=== PATIENT | female | born 1940 | race Caucasian/White ===

== ENCOUNTER 2017-03-13 08:09 | Inpatient (IN) | payer MEDICARE, OTHER ==
[~2017-03-13] VITALS: Ht 172.7 cm; Wt 44.4 kg
--- NOTE | ~2017-03-13 | EC ---
PATIENT:NEDA LIGHT DATE OF SERVICE: 03/13/17 SEX: F MEDICAL RECORD: [id number] DATE OF : 40 LOCATION:D.M2 D.211 AGE OF PATIENT: 77 ADMISSION DATE: 03/13/17 REFERRING PHYSICIAN: INTERPRETING PHYSICIAN: ANDREA WILKINSON MD ECHOCARDIOGRAM REPORT ECHO CHARGES 4 ECHO COMPLETE CLINICAL DIAGNOSIS: HYPOXEMIA, ASSESS FOR SHUNT ECHOCARDIOGRAPHIC MEASUREMENTS (adult normal given) AC root (d.<3.7cm) 3.3 cm LV Septum d (<1.2 cm> 0.90 cm Valve Excursion 1.7 cm LV Septum (systole) 1.1 cm Left Atria (s.<4.0cm> 3.7 cm LVPW d(<1.2cm) 0.90 cm RV (d.<2.3cm) 3.9 cm LVPW (sytole) 1.1 cm LV diastole(<5.6CM) 5.6 cm MV E-F(>70mm/sec) cm LV systole 4.0 cm LVOT Diameter 2.0 cm MV exc.(>10mm) 0.80 cm Est.ejection fraction (50-75%) % Pericardial Effusion N DOPPLER: LVIT cm/sec A 105 cm/sec E 66.0 cm/sec LA cm/sec RVSP 92 mmHg LVOT 141 cm/sec AOP1/2T m/s Asc. Ao 169 cm/sec RVOT cm/sec RA cm/sec PA 140 cm/sec AV Gradient Peak 11.46mmHg AV Mean 5.93 mmHg AV Area 2.8 cm MV Gradient Peak 9.21 mmHg MV Mean 1.67 mmHg MV Area cm COMMENTS: Laboratory Sample Carrier: Juliocesar DOYLE Women Specialist: Jenifer Lorenz TAPE# PACS DATE OF SERVICE: 03/16/2017 Echocardiogram FINDINGS: 1. Left ventricular chamber size is within normal limits. Left ventricular systolic function is normal. Overall ejection fraction estimated at 55%. 2. Left atrium is within normal limits at 3.7 cm, right atrium and right ventricular chamber sizes are moderate to severely dilated. 3. Valvular structures have normal structure and motion. ECHOCARDIOGRAM REPORT [id number] NEDA LIGHT 4. Doppler interrogation reveals mild to moderate mitral regurgitation, moderate to severe tricuspid regurgitation, no other valvular insufficiency or stenosis. Pulmonary systolic is markedly elevated estimated 92 mmHg. 5. No evidence of pericardial effusion or left ventricular thrombus. 6. No evidence of atrial or ventricular septal defect. TRANSINT:[id number] Voice Confirmation ID: [id number] DOCUMENT ID: [id number] ANDREA WILKINSON MD CC: [id number] DICTATION DATE: 03/17/17 1220 GAS DISTRIBUTION PLANT OPERATOR: 03/17/17 1427 DIS IN 03/16/17 [facility] [address] [id number]
--- NOTE | 2017-03-13 10:34 | NUR ---
ARRIVE TO ROOM VIA [facility]. ALERT AND ORIENTED X4. AMBULATES TO RESTROOM WITH WALKER. O2 SAT DROPS TO 88 THEN INCREASES TO 95% WITH 2L NC. DENIES ANY NEEDS. CONTINUE ADMISSION PROCESS. BED LOCKED AND LOW. CALL LIGHT IN REACH. TWO SIDERAILS UP.
[2017-03-13 12:43] VITALS: BP 153/87
[2017-03-13] MEDS ORDERED: SENSIPAR30 MG PO (14:06)
[2017-03-13] MEDS ORDERED: FERREX 28 TABL1 EACH PO (14:08)
[2017-03-13] MEDS ORDERED: VITAMIN B-12500 MCG PO (14:09)
[2017-03-13] MEDS ORDERED: ROCALTROL0.25 MCG PO (14:10)
[2017-03-13] MEDS ORDERED: FOLIC ACID0.8 MG PO (14:11)
[2017-03-13] MEDS ORDERED: VITAMIN D31000 UNIT PO (14:11)
[2017-03-13 15:56] VITALS: BP 153/87; BMI 17.1
[2017-03-13 16:50] VITALS: BP 157/92
--- NOTE | 2017-03-13 18:15 | NUR ---
TRANSPORT TO DIALYSIS VIA WHEELCHAIR. CONTINUE PLAN OF CARE AND SAFETY PRECAUTIONS.
--- NOTE | 2017-03-13 19:26 | NUR ---
PT NOT IN ROOM.WILL PUT IN NOTE WHEN PT BACK TO ROOM. DELICIA CHARGE NURSE NOTIFIED.
--- NOTE | 2017-03-13 20:45 | NUR ---
PT BACK FROM DIALYSIS. UP TO BATHROOM WITH WALKER NO ASSISTANCE. WILL DO ASSESSMENT WHEN OUT OF BATHROOM. NO S/S OF DISTRESS. WILL CPOC
[2017-03-14] VITALS: BP 118/74
--- NOTE | 2017-03-14 01:54 | NUR ---
PT ASLEEP. RESPIRATIONS EVEN AND UNLABORED. NO S/S OF DISTRESS. BED LOW AND CALL LIGHT WITHIN REACH. WILL CPOC
[2017-03-14 04:00] VITALS: BP 128/74
[2017-03-14 06:05] LABS: BASOPHILS 0.2 % (0-2); EOSINOPHILS 2.3 % (0-7); HEMOGLOBIN 10.8 g/dL (12-16); IMMATURE GRANULOCYTES 0.2 % (0-5); MCHC 31.8 g/dL (31.0-37.0); MCV 100.6 fL (80.0-100.0); MEAN PLATELET VOLUME 9.7 fL (7.4-10.4); MONOCYTES 7.6 % (2-11); NEUTROPHILS 61.7 % (40-80); PLATELET COUNT 146 10x3/uL (130-400); RBC 3.38 10x6/uL (4.00-5.40); RDW 15.5 % (11.5-14.5); WBC 4.9 10x3/uL (4.8-10.8)
[2017-03-14 06:38] LABS: ALBUMIN 2.9 g/dL (3.4-5.0); ALKALINE PHOSPHATASE 81 U/L (46-116); ALT (SGPT) 18 U/L (10-68); BILIRUBIN - TOTAL 0.64 mg/dL (0.2-1.3); CALC OSMOLALITY 287 mosm/kg (275-300); CALCIUM 8.7 mg/dL (8.5-10.1); CARBON DIOXIDE 32.1 mmol/L (21.0-32.0); CHLORIDE - SERUM 102 mmol/L (98-107); CKMB 0.5 U/L (0.0-3.6); CREATININE - SERUM 2.9 mg/dL (0.6-1.3); GLUCOSE 93 mg/dL (74-106); MAGNESIUM - SERUM 1.9 mg/dL (1.8-2.4); PHOSPHOROUS 4.1 mg/dL (2.5-4.9); POTASSIUM - SERUM 3.6 mmol/L (3.5-5.1); PROTEIN - SERUM 6.2 g/dL (6.4-8.2); SODIUM 143 mmol/L (136-145); TROPONIN-I 0.028 ng/mL (0.000-0.060); UREA NITROGEN 22 mg/dL (7-18); eGFR NON AFRICAN AMERICAN 17 mL/min (90-120)
--- NOTE | 2017-03-14 07:08 | NUR ---
PT AWAKE LAYING IN BED. PT EXPRESSED BEING HAPPY THAT SHE WAS ABLE TO SLEEP THROUGH THE NIGHT. O2 2L NC STILL ON. RIGHT AC IV STILL S/L. BED LOW CALLLIGHT WITHIN REACH. DENIES ANY NEEDS. WILL CPOC
[2017-03-14 08:00] VITALS: BP 118/64
[2017-03-14 12:00] VITALS: BP 104/65
[2017-03-14 12:10] VITALS: Ht 172.7 cm; Wt 44.4 kg
[2017-03-14 16:00] VITALS: BP 105/60
--- NOTE | 2017-03-14 17:04 | NUR ---
RESTING IN BED. ALERT AND ORIENTED X4. DENIES ANY NEEDS. NO CHANGE. CONTINUE PLAN OF CARE AND SAFETY PRECAUTIONS.
[2017-03-14 21:52] VITALS: BP 131/78
--- NOTE | 2017-03-15 04:26 | NUR ---
PATIENT IS RESTING QUIETLY WITH EYES CLOSED. NO SIGNS OF DISTRESS NOTED. BED IN LOWEST POSITION, CALL LIGHT IN REACH. BED RAILS UP X'S 2.
[2017-03-15 06:10] VITALS: BP 125/75
--- NOTE | 2017-03-15 08:04 | NUR ---
AM ROUNDS - PT IN BED AND APPEARS TO BE SLEEPING WITH EQUAL AND NON LABORED BREATHING. O2 AT 3L VIA NC. IV TO LEFT AC, SL. PT IS A RESERVE RIGHT ARM. BED AT LOWEST POSITION. CALL PIERRE IN USE/REACH. SIDE RAILS UP X2. WILL CONTINUE TO MONITOR
--- NOTE | 2017-03-15 10:36 | NUR ---
PT LEFT FLOOR VIA BED TO DIALYSIS.
--- NOTE | 2017-03-15 14:56 | NUR ---
PT BACK FROM DIALYSIS. PT HAS NO IV. WILL CONTINUE TO MONITOR
--- NOTE | 2017-03-15 19:50 | NUR ---
PT. IN BED WITH HOB UP FOR COMFORT. PT. C/O RUE PERIPHERAL I.V. SITE PAINFUL. SLOWLY FLUSHED SITE WITH 0.9%NS AND HAD NO RESISTANCE BUT PT. STATES IS PAINFUL. NO REDNESS AT SITE BUT AREA IS SWOLLEN. WILL D/C SITE. ASSESSMENT COMPELETED. CALL LIGHT WITHIN REACH.
--- NOTE | 2017-03-15 20:15 | NUR ---
INFORMED PT. THAT SHE DOESN'T HAVE ANY MORE IV'S UNTIL TOMORROW AFTERNOON. PT. REPORTS THAT SHE MAY BE GOING HOME TOMORROW SO SHE WON'T BE GETTING ANY MORE IV'S IF SHE DOES. PT. REQUESTED THAT I NOT REMOVE HER CURRENT PERIPHERAL I.V., BUT TO WAIT UNTIL TOMORROW TO SEE IF SHE EVEN NEEDS IT ANY LONGER. INFORMED PT. THAT IF SHE SHOULD CHANGE HER MIND TO LET ME KNOW. PT. STATED SHE WOULD.
[2017-03-15 21:40] VITALS: BP 119/50
[2017-03-16 01:20] VITALS: BP 121/60
--- NOTE | 2017-03-16 03:24 | NUR ---
PT. IN BED WITH HOB UP FOR COMFORT. EYES CLOSED AND RESP. EVEN. O2 AT 3L/MIN VIA N/C WITHOUT ANY S/S DISTRESS. CALL LIGHT WITHIN REACH.
[2017-03-16 05:43] VITALS: BP 112/58
[2017-03-16 06:09] LABS: MAGNESIUM - SERUM 1.9 mg/dL (1.8-2.4); PHOSPHOROUS 5.7 mg/dL (2.5-4.9)
--- NOTE | 2017-03-16 08:17 | NUR ---
SITTING UP IN BED EATING BREAKFAST. WILL CONTINUE TO MONITOR.
[2017-03-16 08:18] LABS: IMMUNOGLOBULIN E 22 IU/mL (0-100)
[2017-03-16 08:44] VITALS: BP 133/71
--- NOTE | 2017-03-16 10:39 | NUR ---
Nutrition Follow Up: Pt is eating 79% meal avg on a renal diet. Wt loss since admit noted - likely r/t fluid. +BM 03/14/17. Meds noted including Prednisone. Labs reviewed. Rec continue current diet. Will continue to provide selective menus and honor food preferences within diet ordered. RD following.
[2017-03-16 11:17] LABS: IMMUNOGLOBULIN A 91 mg/dL (64-422); IMMUNOGLOBULIN G 860 mg/dL (700-1600)
[2017-03-16 12:04] VITALS: BP 105/54
--- NOTE | 2017-03-16 12:20 | NUR ---
Patient Name: NEDA LIGHT Admission Status: Elective Accout number: [id number] Admission Date: 03-13-2017 : 1940 Admission Diagnosis:SHORTNESS OF BREATH Attending: TAMIR Current LOS: 3 Anticipated DC Date: 03-16-2017 Planned Disposition: Home Primary Insurance: MEDICARE A & B Discharge Planning Comments: * Is the patient Alert and Oriented? Yes 0 * How many steps to enter\exit or inside your home? 4 0 * [facility] * Pharmacy [facility] [place] 0 * Preadmission Environment Home with Family 0 * ADLs Independent 0 * Equipment Bedside Commode Cane Walker 0 * Other Equipment NO MEDICAL EQUIPMENT PROVIDER PREFERNECE 0 * List name and contact numbers for known caregivers / representatives who currently or will assist patient after discharge: BRIGITTE MCLEAN, SON, [place] [phone] 0 * Community resources currently utilized None 0 * Please name any agencies selected above. NONE 0 * Additional services required to return to the preadmission environment? Yes * Can the patient safely return to the preadmission environment? Yes 0 * Has this patient been hospitalized within the prior 30 days at any hospital? No 0 CM RECEIVED OXYGEN AND NEBULIZER ORDER FOR HOME USE. CM MET WITH PT IN ROOM TO DISCUSS DISCHARGE PLANNING AND NEEDS. PT REPORTS LIVING AT HOME INDEPENDENTLY WITH HER JUVENILE GRANDSON FOR WHOM SHE IS THE CAREGIVER. PT HAS BEDSIDE COMMODE, CANE, WALKER AND WHEELCHAIR FROM HER SPOUSE. PT HAS NO MEDICAL EQUIPMENT PROVIDER PREFERENCE. PT HAS NO OUTSIDE SERVICES ASSISTING IN THE HOME. CM DISCUSSED AVAILABILITY OF HOME HEALTH, REHAB SERVICES AND MEDICAL EQUIPMENT. PT DENIES DISCHARGE NEEDS OTHER THAN THE OXYGEN WITH NO PREFERENCE OF COMPANY. PT REPORTS HER SON WILL PICK HER UP FOR DISCHARGE HOME. IMPORTANT MESSAGE FROM MEDICARE PROVIDED AND EXPLAINED. CM CALLED [facility],[phone], SPOKE TO MIESHA AND PROVIDED REFERRAL INFORMATION AND FAXED REFERRAL TO [phone]. PT NOTIFIED. [facility] TO DELIVER NEBULIZER AND PORTABLE OXYGEN TO PT'S ROOM TODAY FOR DISCHARGE HOME AND WILL ALSO ARRANGE HOME DELIVERY OF HOME OXGYEN CONCENTRATOR WHEN PT ARRIVES HOME. Insecticide Mixer: Lane Medel
--- NOTE | 2017-03-16 14:47 | NUR ---
[facility] BEEPED FOR DISCHARGE ORDERS DR AUSTIN WROTE PATIENT MAY BE DISCHARGED FROM HIS STANDPOINT. AWAITING CALL BACK.
--- NOTE | 2017-03-16 15:05 | NUR ---
RECEIVED CALL BACK FROM [facility] PUENTES [facility] AND SHE WILL TRY TO DO THE DISCHARGE ORDERS FOR US.
[2017-03-16] MEDS ORDERED: PROTONIX40 MG PO (17:13)
[2017-03-16] MEDS ORDERED: FLUTICASONE PRO16 GM NASAL (17:13)
[2017-03-16] MEDS ORDERED: PREDNISONE20 MG PO (17:13)
[2017-03-16] MEDS ORDERED: FLORAJEN3 CAPS460 MG PO (17:13)
[2017-03-16] MEDS ORDERED: SINGULAIR10 MG PO (17:14)
[2017-03-16] MEDS ORDERED: CEFUROXIME250 MG PO (17:15)
[2017-03-16] MEDS ORDERED: PROAIR HFA8.5 GM INH (17:16)
[2017-03-16] MEDS ORDERED: OMNICEF300 MG PO (17:21)
[2017-03-16] MEDS ORDERED: MUCINEX DM ER1 EAC1 PO (17:22)
[2017-03-16] MEDS ORDERED: STERAPRED DS 1210 MG PO (17:23)
--- NOTE | 2017-03-16 17:32 | NUR ---
PT IN BED. FAMILY AT BEDSIDE. PT IS WAITING TO GO HOME. WILL CONTINUE TO MONITOR
--- NOTE | 2017-03-16 18:40 | NUR ---
WRITTEN AND VERBAL D/C ORDERS GIVEN TO PT AND FAMILY MEMBER. IV TO RIGHT UPPER ARM D/C. CATH TIP INTACT. 2X2 DRESSING APPLIED AND SECURED WITH TAPE. PT TOLERATED WELL. PT LEFT FLOOR VIA WHEELCHAIR WITH AIRPORT ATTENDANT. WILL D/C
== END 2017-03-16 18:46 | disposition home or self-care (01) | DRG 189 ==
LOC: D.M2 08:09
PROVIDERS: Internal Medicine Pulmonary Disease; ADMIT Emergency Medicine
DX: J96.01 Acute respiratory failure with hypoxia (principal); N18.6 End stage renal disease; I13.2 Hypertensive heart and chronic kidney disease with heart failure and with stage 5 chronic kidney disease, or end stage renal disease; J98.11 Atelectasis; J45.909 Unspecified asthma, uncomplicated; I50.9 Heart failure, unspecified; Z99.2 Dependence on renal dialysis; D50.9 Iron deficiency anemia, unspecified; K21.9 Gastro-esophageal reflux disease without esophagitis; M19.90 Unspecified osteoarthritis, unspecified site; J98.4 Other disorders of lung; M41.9 Scoliosis, unspecified; Z86.11 Personal history of tuberculosis

== ENCOUNTER 2017-07-24 06:55 | Outpatient (CLI) | payer MEDICARE, OTHER ==
[~2017-07-24] VITALS: Ht 172.7 cm; Wt 52.3 kg
--- NOTE | ~2017-07-24 | HEMODYNAMI ---
PATIENT:NEDA LIGHT MEDICAL RECORD: [id number] : 40 LOCATION:D.CAT ADMISSION DATE: 07/24/17 Generatedon:07/24/20179:45 Patient name: NEDA LIGHT Patient #: [id number] SSN: : 1940 Date of study: 07/24/2017 Page: Of Hemodynamic Procedure Report Patient Data Patient Demographics Procedure consent was obtained First Name: NEDA Gender: Female Last Name: KULDEEP : 1940 Middle Initial: S Age: 77 year(s) Patient #: [id number] Race: Unknown Additional ID: [id number] Contact details [address]: [address] [place] [address] State: [place] City: [place] Zip code: [address] Past Medical History Allergies Allergen Reaction Date Comments Reported Other allergy 07/24/2017 PCN Admission Admission Data Admission Date: 07/24/2017 Admission Time: 6:55 Arrival Date: 07/24/2017 Arrival Time: 9:00 Admit Source: Other Insurance Payor: Medicare Height (in.): 68 BSA: 1.59 (m2) Height (cm.): 172.72 BMI: 16.88 (kg/m2) Weight (lbs.): 111 Weight (kg.): 50.35 Procedure Procedure Types Cath Procedure Diagnostic Procedure Right Heart RHC and LHC w/Coronaries Right Heart Pharmacology Study Procedure Description Procedure Date Procedure Date: 07/24/2017 Procedure Start Time: 9:12 Procedure End Time: 9:44 Procedure Staff Name Function Clark Lorenz MD Performing Physician Leonor Lawler RT Monitor Rena Charles RT Scrub Jenna Nguyễn RN Nurse Asmita Bowers RN Nurse Procedure Data Cath Procedure Fluoroscopy Diagnostic fluoroscopy Total fluoroscopy Time: 4.6 time: 4.6 min min Diagnostic fluoroscopy Total fluoroscopy dose: 278 dose: 278 mGy mGy Contrast Material Contrast Material Type Amount (ml) Isovue 300 60 Entry Location Entry Primary Successful Side Size Upsize Upsize Entry Closure Payne ccessful Closure Location (Fr) 1 (Fr) 2 (Fr) Remarks Device Remarks Femoral Right 7 Fr Manual vein Short Compression Femoral Right 5 Fr Exoseal artery Estimated blood loss: 10 ml Diagnostic catheters Device Type Used For End Catheter Placement SWAN 7Fr Thermodilution Procedure cather (131F7P) MULTIPACK JL 4.0 5Fr Procedure catheter MULTIPACK 3DRC 5Fr Procedure catheter MULTIPACK Pigtail 5 Fr Ventriculography catheter Procedure Complications No complications Procedure Medications Medication Administration Route Dosage 0.9% NaCl I.V. Oxygen NC 3 l/min Lidocaine 2% added to field 20 Heparin Flush Bag added to field 2 bags (1000units/500ml NS) Adenosine IV 3mg/ml I.V. 50 mcg/kg/min Adenosine IV 3mg/ml 50 mcg/kg/min Hemodynamics Rest BSA: 1.59 (m2) O2 Consumption: Estimated: 149.72 (ml/min) O2 Consumption indexed : Estimated:94.16 (ml/min/m) Heart Rate: 80 (bpm) Oxygen Saturations Time Location Saturations Hgb (g/dl) O2 Content Use (%) (ml/L) 9:17 PCW 88.4 9:19 AO 90.5 9:24 PA 59.5 9:32 RA 59.2 Pressure Samples Time Site Value (mmHg) Purpose Heart Use Rate(bpm) 9:16 PCW 7/8(8) Snapshot 87 9:16 PCW 9/10(8) Snapshot 87 9:18 PA 68/22(41) Snapshot 85 9:20 PA 64/25(39) Snapshot 93 9:31 PA 62/26(40) Snapshot 82 9:31 RV 64/6,15 Snapshot 94 9:31 RV 59/7,15 Snapshot 83 9:31 RA 18/15(13) Snapshot 83 9:39 LV 127/8,15 EDP 88 Thermodilution Cardiac Output Time Cardiac Output (l/min) Use 9:24 3.16 l/m 9:25 3.28 l/m Calculations Vascular Value Indexed CO SV CO CI Resistance (dyne) values (ml/beat) (l/min) (l/(min*m)) TPVR 984.47 1565.31 Thermal 39.27 3.22 2 PVR 784.94 1248.05 Source Thermal Systolic Diastolic Ejection Regurgitation SW SWI Vol. Vol. (%) (%) Right 14.43 9.08 Source Thermal Snapshots Thermal Samples Pre Cath Intra NCS Post Cath Vital Signs Time Heart Resp SPO2 etCO2 NIBP (mmHg) Rhythm Pain Sedation Rate (ipm) (%) (mmHg) Status Level (bpm) 9:00:03 88 26 92 12.8 136/83(109) NSR 0 (11) 10(A) , No pain 9:04:11 76 31 93 13.5 129/85(114) NSR 0 (11) 10(A) , No pain 9:08:17 85 23 94 12.8 131/84(111) NSR 0 (11) 10(A) , No pain 9:12:23 85 22 94 9.8 131/85(108) NSR 0 (11) 10(A) , No pain 9:16:45 86 17 94 16.6 119/77(100) NSR 0 (11) 10(A) , No pain 9:20:47 78 24 93 15.8 128/81(109) NSR 0 (11) 10(A) , No pain 9:24:54 82 28 93 15.8 128/76(107) NSR 0 (11) 10(A) , No pain 9:29:02 82 27 94 10.5 134/77(108) NSR 0 (11) 10(A) , No pain 9:33:12 82 25 93 12 124/75(109) NSR 0 (11) 10(A) , No pain 9:37:16 80 25 94 13.6 128/81(108) NSR 0 (11) 10(A) , No pain 9:41:22 82 31 93 16.6 130/83(107) NSR 0 (11) 10(A) , No pain Medications Time Medication Route Dose Verified Delivered Reason N otes Effectiveness by by 8:59:30 0.9% NaCl I.V. kvo ml/hr Clark Tian used for Gerda Bowers RN procedure 8:59:43 Oxygen NC 3 l/min Clark Tian for low 02 Gerda Bowers RN sats 9:00:20 Lidocaine 2% added to 20ml vial Clark Clark for local field Gerda Lorenz MD anesthetic 9:01:07 Heparin Flush added to 2 bags Clark Clark used for Bag field Gerda Lorenz MD procedure (1000units/500ml NS) 9:27:31 Adenosine IV I.V. 50 Clark Asmita Per 3mg/ml mcg/kg/min Gerda Bowers RN physician 9:29:59 Adenosine IV I.V.-stopped 50 Clark Asmita Per 3mg/ml mcg/kg/min Gerda aguiar MD Procedure Log Time Note 8:38:06 Admit Source: Other 8:38:12 Arrival Date: 07/24/2017 9:00:00 AM 8:38:19 Insurance Payor : Medicare 8:38:25 Patient Height : 68 inches 8:38:29 Patient Weight : 111 lbs 8:45:12 Leonor Lawler RT(R) sent for patient. Start room use. 8:45:12 Time tracking: Regular hours 8:45:16 Plan of Care:Hemodynamics will remain stable., Cardiac rhythm will remain stable., Comfort level will be maintained., Respiratory function will remain adequate., Patient/ family verbilizes understanding of procedure., Procedure tolerated without complication., Recovers from procedure without complications.. 8:59:02 Vital chart was started 8:59:06 Patient received from Pre/Post Procedure Room to CCL 2 Alert and oriented. Tansferred to table in Supine position. 8:59:07 Warm blankets applied, and kemar hugger turned on for patient comfort. 8:59:08 Correct patient and procedure confirmed by team. 8:59:09 Signed procedure consent form obtained from patient. 8:59:10 ECG and BP/O2 sat monitors applied to patient. 8:59:12 Baseline sample Acquired. 8:59:19 Rhythm: sinus rhythm 8:59:22 Full Disclosure recording started 8:59:30 0.9% NaCl kvo ml/hr I.V. was administered by Asmita Bowers RN; used for procedure; 8:59:41 H&P Date Dictated: 07/10/2017 Within 30 days and on chart., H&P Addendum completed by physician on day of procedure. (MUST COMPLETE FOR ALL OUTPATIENTS). 8:59:43 Oxygen 3 l/min NC was administered by Asmita Bowers RN; for low 02 sats; 8:59:43 Pre-procedure instructions explained to patient. 8:59:45 Family in waiting room. 8:59:47 Patient NPO since Midnight. 9:00:03 Patient allergic to Other allergyPCN 9:00:08 Is the patient allergic to Iodine/contrast media? No. 9:00:10 Is patient on blood thinner?No 9:00:12 Patient diabetic? No. 9:00:17 Snore? Unknown 9:00:18 Sleep apnea? No 9:00:20 Lidocaine 2% 20ml vial added to field was administered by Clark Lorenz MD; for local anesthetic; 9:00:26 Dentures? Yes tight 9:00:37 IV patent on arrival in right forearm with 0.9% NaCl at [facility]. 9:01:07 Heparin Flush Bag (1000units/500ml NS) 2 bags added to field was administered by Clark Lorenz MD; used for procedure; 9:02:20 Right groin area was prepped with chlora-prep and draped in sterile fashion 9:02:21 Alarms reviewed by R. N. 9:02:21 Sharps counted by scrub and verified by R.N. 9:03:19 Use device set Femoral Dx 9:05:02 ACIST Syringe (04428) opened to sterile field. 9:05:04 Bag Decanter (2002S) opened to sterile field. 9:05:05 Medline Cath Pack ([id number]) opened to sterile field. 9:05:08 SHEATH 5FR [place] ([id number]) opened to sterile field. 9:05:10 DIAGNOSTIC WIRE .035 260cm J wire (146344) opened to sterile field. 9:05:15 ACIST Hand Control (74404) opened to sterile field. 9:05:16 ACIST Manifold (80086) opened to sterile field. 9:05:19 DIAGNOSTIC Multipack 5Fr catheter set ([id number]) opened to sterile field. 9:05:22 Tegaderm 4 x 4 (1626W) opened to sterile field. 9:05:23 PERCUTANEOUS ENTRY 19GA needle opened to sterile field. 9:05:24 MICROPUNCTURE 4FR Cook ([id number]) opened to sterile field. 9:05:35 MICROPUNCTURE 4FR Cook (W11283) opened to sterile field. 9:06:42 SHEATH 7FR [place] (DSP645) opened to sterile field. 9:11:06 Zero performed for pressure channel P1 9:11:29 Physician arrived 9:: --------ALL STOP TIME OUT------ 9::30 Final Timeout: patient, procedure, and site verified with staff and physician. All members of the team are in agreement. :: Right groin site verified by team. 9::35 Physical assessment completed. ASA score P 2 - A patient with mild systemic disease as per Clark Lorenz MD. ::39 Sedation plan: IV Moderate Sedation Medication:Versed, Fentanyl 9::54 Procedure started. 9:12:17 Local anesthetic to right femoral artery with Lidocaine 2% by Clark Lorenz MD.INITIAL ACCESS ONLY 9:12:21 Access obtained with 4Fr micropunture. 9:16:03 A 7 Fr Short sheath was inserted into the Right Femoral vein 9:16:09 A SWAN 7Fr Thermodilution cather (131F7P) was advanced over the wire and used for Procedure. 9:17:14 [place]-Maria E "C" tip catheter inserted 9:17:23 Right heart pressures and cardiac output were obtained. 9::39 PCW saturation: 88.4% 9:19:26 AO saturation: 90.5% 9:24:15 Thermodilution performed using a Carbajal 131F7 7.0 Fr 19-22C 10.00 mL. Injectate temperature was 17.06 C, CO: 3.16 L/min, average CO: 3.22 L/min 9:24:41 PA saturation: 59.5% 9:25:26 Thermodilution performed using a Carbajal 131F7 7.0 Fr 19-22C 10.00 mL. Injectate temperature was 17.38 C, CO: 3.28 L/min, average CO: 3.22 L/min 9:26:41 Timer 1 started at 9:26 AM, stopped at 9:26 AM, duration 00:00:12 sec. 9::31 Adenosine IV 3mg/ml 50 mcg/kg/min I.V. was administered by Asmita Bowers RN; Per physician; 9:29:59 Adenosine IV 3mg/ml 50 mcg/kg/min I.V.-stopped was administered by Asmita Bowers RN; Per physician; 9:32:16 RA saturation: 59.2% 9:33:36 A 5 Fr sheath was inserted into the Right Femoral artery 9:33:45 Oximetry samples were obtained 9:33:51 [place] E removed. 9:34:26 A MULTIPACK JL 4.0 5Fr catheter was advanced over the wire and used for Procedure. 9:34:36 LCA angiography performed. 9:35:22 Catheter removed. 9:35:29 A MULTIPACK 3DRC 5Fr catheter was advanced over the wire and used for Procedure. 9:37:16 RCA angiography performed. 9:37:22 Catheter removed. 9:38:37 A MULTIPACK Pigtail 5 Fr catheter was advanced over the wire and used for Ventriculography. 9:40:15 Catheter removed. 9:40:24 EF : 60 % 9:40:32 EXOSEAL 5Fr (EX500) opened to sterile field. 9:41:37 Sheath removed intact; hemostasis achieved with Exoseal to the Right Femoral artery. 9:41:49 Sheath removed intact; hemostasis achieved with Manual Compression to the Right Femoral vein. 9:41:58 Procedure ended.(Physican Out) 9:42:10 Fluoroscopy time 04.60 minutes. 9:42:15 Fluoroscopy dose: 278 mGy 9:42:15 Flurop Dose total: 278 9:42:20 Contrast amount:Isovue 300 60ml. 9:42:21 Sharps counted by scrub and verified by R.N. 9:42:24 Insertion/operative site no bleeding no hematoma. 9:42:28 Post-op/insertion site Right Femoral artery dressed using a 4 x 4 and Tegaderm. 9:42:33 Post-op/insertion site Right Femoral vein dressed using a 4 x 4 and Tegaderm. 9:42:38 Post Procedure Pulses reassessed and unchanged 9:42:44 Post-procedure physical assessment completed. ASA score P 2 - A patient with mild systemic disease as per Clark Lorenz MD. 9:42:49 Post procedure rhythm: unchanged. 9:42:52 Estimated blood loss: 10 ml 9:42:54 Post procedure instruction explained to patient.Patient verbalizes understanding. 9:44:00 Procedure type changed to Cath procedure, Diagnostic procedure, Right Heart, RHC and LHC w/Coronaries, Right Heart Pharmacology Study 9:44:04 Procedure and supply charges have been captured, reviewed, submitted and are correct. 9:44:31 Procedure Complication : No complications 9:44:33 Vital chart was stopped 9:44:34 See physician's report for complete and final results. 9:44:36 Report given to Pre/Post Procedure Room. 9:44:39 Patient transfered to Pre/Post Procedure Room with Stretcher. 9:44:41 Procedure ended. 9:44:41 Full Disclosure recording stopped 9:44:47 End room use (Document Last) Device Usage Item Name Manufacture Quantity Catalog Hospital Part Current Minima l Lot# / Number Charge Number Stock Stock Serial# Code ACIST Syringe Acist 1 38389 367354 853126 249801 20 (83665) Medical Systems Inc Bag Decanter Microtek 1 2001S 579872 22282 179718 5 () Medical Inc. Medline Cath Cardinal 1 [id number] 087734 34067 614990 5 Pack Health ([id number]) SHEATH 5FR Terumo 1 RLK685 254858 903358 581039 40 [place] (IVX889) DIAGNOSTIC St Darío 1 037883 961325 011276 429721 30 WIRE .035 260cm J wire (203079) ACIST Hand Acist 1 62000 612703 721254 866917 5 Control Medical (48526) Systems Inc ACIST Manifold Acist 1 18127 047888 233825 924331 5 (06804) Medical Systems Inc DIAGNOSTIC Cardinal 1 NA7767 794685 56457 345714 30 Multipack 5Fr Health catheter set ([id number]) Tegaderm 4 x 4 3M 1 1626W 363882 706521 251008 5 (1626W) PERCUTANEOUS Cook Medical 1 J11732 465121 726235 5 ENTRY 19GA needle MICROPUNCTURE Cook Medical 2 N41089 480595 385209 354496 5 4FR Cook ([id number]) SHEATH 7FR Terumo 1 KIU015 832697 128164 308963 5 [place] (KSZ973) SWAN 7Fr Carbajal 1 131F7P 069741 88641 421047 3 Thermodilution Lifesciences cather (131F7P) MULTIPACK JL Cardinal 1 [id number] 5 4.0 5Fr Health catheter MULTIPACK 3DRC Cardinal 1 [id number] 5 5Fr catheter Health MULTIPACK Cardinal 1 369072 5 Pigtail 5 Fr Health catheter EXOSEAL 5Fr Cardinal 1 EX500 872243 644630 017519 10 (EX500) Health Signature Audit Mobile Stage Time Signature Unsigned Intra-Procedure 07/24/2017 Leonor Lawler 9:45:18 AM RT(R) Signatures Monitor : Leonor Lawler Signature : RT Date : Time : [id number] [place] [address]
[~2017-07-24 06:55] MED LIST: CEFUROXIME250 MG PO; FERREX 28 TABL1 EACH PO; FLORAJEN3 CAPS460 MG PO; FLUTICASONE PRO16 GM NASAL; FOLIC ACID0.8 MG PO; MUCINEX DM ER1 EAC1 PO; OMNICEF300 MG PO; PREDNISONE20 MG PO; PROAIR HFA8.5 GM INH; PROTONIX40 MG PO; ROCALTROL0.25 MCG PO; SENSIPAR30 MG PO; SINGULAIR10 MG PO; STERAPRED DS 1210 MG PO; VITAMIN B-12500 MCG PO; VITAMIN D31000 UNIT PO
[2017-07-24] MEDS ORDERED: MEGACE40 MG PO (07:13)
[2017-07-24 07:21] VITALS: BP 132/79; Ht 172.7 cm; Wt 52.3 kg
[2017-07-24 07:38] LABS: BASOPHILS 0 % (0-2); EOSINOPHILS 0.4 % (0-7); HEMATOCRIT 37.7 % (36.0-48.0); HEMOGLOBIN 11.7 g/dL (12-16); IMMATURE GRANULOCYTES 0.2 % (0-5); LYMPHOCYTES 20.9 % (15-50); MCH 31.1 pg (26.0-34.0); MCV 100.3 fL (80.0-100.0); MEAN PLATELET VOLUME 9.7 fL (7.4-10.4); NEUTROPHILS 69.5 % (40-80); PLATELET COUNT 141 10x3/uL (130-400); RBC 3.76 10x6/uL (4.00-5.40); RDW 14.9 % (11.5-14.5); WBC 5.5 10x3/uL (4.8-10.8)
[2017-07-24 07:49] LABS: ANION GAP 13.2 mmol/L (8-16); CALCIUM 8.6 mg/dL (8.5-10.1); CREATININE - SERUM 2.4 mg/dL (0.6-1.3); POTASSIUM - SERUM 3.2 mmol/L (3.5-5.1)
--- NOTE | 2017-07-24 10:00 | NUR ---
1000 RECIEVED TO ROOM VIA STRETCHER FROM ENAMEL DIPPER WITH REPORTS OF A CLEAN CATH. 5 FR EXOSEAL R/GROIN CDI NO BLEEDING NO HEMATOMA NOTED INSTRUCTED PATIENT TO KEEP HEAD FLAT ON PILLOW WITH RLE STRAIGHT
--- NOTE | 2017-07-24 10:45 | NUR ---
1045 DRESSING TO RIGHT GROIN IS CDI, AREA IS SOFT AND NONTENDER. PEDAL PULSES PALPABLE, FAMILY AT BEDSIDE, RR EVEN AND UNLABORED AT 3 LPM VIA NC.
--- NOTE | 2017-07-24 10:51 | NUR ---
1035 DRESSING TO RIGHT GROIN IS CDI, AREA IS SOFT AND NONTENDER. PEDAL PULSES PALPABLE. RR EVEN AND UNLABORED ON O2 AT 3 LPM VIA NC.
--- NOTE | 2017-07-24 11:15 | NUR ---
1115 DRESSING REMAINS CDI, AREA SOFT AND NONTENDER. PEDAL PULSES PALPABLE. FAMILY AT BEDSIDE, CALL LIGHT IN REACH.
--- NOTE | 2017-07-24 11:45 | NUR ---
1130 HOB ELEVATED AND SANDWICH TRAY SERVED. DRESSING TO RIGHT GROIN IS CDI, AREA SOFT AND NONTENDER. PEDAL PULSES PALPABLE. SON AT BEDSIDE. PT DENIES ANY C/O AT THIS TIME.
--- NOTE | 2017-07-24 12:13 | NUR ---
1210 IV DC'D WITH CATH INTACT. ASSISTED PT WITH DRESSING FOR DC TO HOME. REVIEWED DC INSTRUCTIONS WITH PT AND SON WHO VERBALIZE UNDERSTANDING. PT ESCORTED TO PRIVATE AUTO VIA WC BY NURSE WITH SON DRIVING HER HOME.
== END 2017-07-24 12:10 | disposition home or self-care (01) ==
LOC: D.CATH 06:55
PROVIDERS: Internal Medicine Cardiovascular Disease
DX: I25.10 Atherosclerotic heart disease of native coronary artery without angina pectoris (principal); I27.20 Pulmonary hypertension, unspecified; I34.0 Nonrheumatic mitral (valve) insufficiency; R06.00 Dyspnea, unspecified; Z01.812 Encounter for preprocedural laboratory examination

== ENCOUNTER → 2017-09-04 16:41 | Outpatient (CLI) | payer MEDICARE, OTHER ==
[2017-07-24 07:21] VITALS: BMI 17.5
[~2017-09-04 16:41] MED LIST changes: +MEGACE40 MG PO
[2017-09-04 19:57] LABS: ALBUMIN 3.5 g/dL (3.4-5.0); ANION GAP 12.4 mmol/L (8-16); BILIRUBIN - TOTAL 0.64 mg/dL (0.2-1.3); CALCIUM 9.3 mg/dL (8.5-10.1); CARBON DIOXIDE 33.1 mmol/L (21.0-32.0); CREATININE - SERUM 2.8 mg/dL (0.6-1.3); POTASSIUM - SERUM 3.5 mmol/L (3.5-5.1); PROTEIN - SERUM 6.5 g/dL (6.4-8.2)
== END | disposition home or self-care (01) ==
LOC: D.LABREF 16:41
PROVIDERS: Internal Medicine Pulmonary Disease
DX: J44.9 Chronic obstructive pulmonary disease, unspecified (principal)

== ENCOUNTER → 2017-09-10 19:19 | Outpatient (CLI) | payer MEDICARE, OTHER ==
[2017-07-24 07:21] VITALS: BMI 17.5
== END | disposition home or self-care (01) ==
LOC: D.SLEEP 19:19
DX: G47.33 Obstructive sleep apnea (adult) (pediatric) (principal)

== ENCOUNTER 2017-10-10 09:48 | Inpatient (IN) | payer MEDICARE, OTHER ==
[~2017-10-10] VITALS: Ht 172.7 cm; Wt 47.0 kg
[2017-10-10 11:02] LABS: HEMATOCRIT 33.8 % (36.0-48.0); HEMOGLOBIN 10.8 g/dL (12-16); LYMPHOCYTES 22.4 % (15-50); MCH 31.9 pg (26.0-34.0); MCV 99.7 fL (80.0-100.0); MEAN PLATELET VOLUME 10.8 fL (7.4-10.4); NEUTROPHILS 69.8 % (40-80); PLATELET COUNT 123 10x3/uL (130-400); RBC 3.39 10x6/uL (4.00-5.40); RDW 15.6 % (11.5-14.5); WBC 4.5 10x3/uL (4.8-10.8)
[2017-10-10 11:08] LABS: ANION GAP 11.8 mmol/L (8-16); BILIRUBIN - TOTAL 0.69 mg/dL (0.2-1.3); CALCIUM 8.7 mg/dL (8.5-10.1); CARBON DIOXIDE 29.6 mmol/L (21.0-32.0); CREATININE - SERUM 3.7 mg/dL (0.6-1.3); POTASSIUM - SERUM 3.4 mmol/L (3.5-5.1); PROTEIN - SERUM 6.4 g/dL (6.4-8.2)
[2017-10-10 11:11] LABS: TROPONIN-I 0.026 ng/mL (0.000-0.060)
[2017-10-10] MEDS ORDERED: PEPCID20 MG PO (20:23)
[2017-10-10] MEDS ORDERED: LETAIRIS5 MG PO (20:23)
[2017-10-10] MEDS ORDERED: LEVAQUIN250 MG PO (20:23)
[2017-10-10 20:39] VITALS: BP 100/64
[2017-10-10 23:13] VITALS: BP 125/63; BMI 16.6
[2017-10-11] VITALS: BP 91/55
[2017-10-11 04:40] LABS: BASOPHILS 0 % (0-2); EOSINOPHILS 0.6 % (0-7); HEMATOCRIT 34.5 % (36.0-48.0); HEMOGLOBIN 10.4 g/dL (12-16); LYMPHOCYTES 21.8 % (15-50); MCH 30.3 pg (26.0-34.0); MCHC 30.1 g/dL (31.0-37.0); MCV 100.6 fL (80.0-100.0); MEAN PLATELET VOLUME 10.6 fL (7.4-10.4); MONOCYTES 10.2 % (2-11); NEUTROPHILS 67.4 % (40-80); PLATELET COUNT 113 10x3/uL (130-400); RBC 3.43 10x6/uL (4.00-5.40); RDW 16.3 % (11.5-14.5); WBC 3.5 10x3/uL (4.8-10.8)
[2017-10-11 04:53] VITALS: BP 110/66
[2017-10-11 05:02] LABS: CARBON DIOXIDE 30.1 mmol/L (21.0-32.0); CREATININE - SERUM 2.8 mg/dL (0.6-1.3); POTASSIUM - SERUM 3.1 mmol/L (3.5-5.1)
[2017-10-11 08:09] VITALS: BP 110/63
[2017-10-11 11:19] VITALS: BP 98/45
[2017-10-11 12:18] VITALS: Ht 172.7 cm; Wt 47.0 kg
[2017-10-11 15:22] VITALS: BP 102/60
[2017-10-11 20:00] VITALS: BP 91/60
[2017-10-12] VITALS: BP 104/65
[2017-10-12 04:00] VITALS: BP 113/69
[2017-10-12 06:24] LABS: BASOPHILS 0 % (0-2); HEMATOCRIT 31.6 % (36.0-48.0); HEMOGLOBIN 9.7 g/dL (12-16); LYMPHOCYTES 22.9 % (15-50); MCH 30.8 pg (26.0-34.0); MCHC 30.7 g/dL (31.0-37.0); MCV 100.3 fL (80.0-100.0); MEAN PLATELET VOLUME 10.6 fL (7.4-10.4); MONOCYTES 10.5 % (2-11); NEUTROPHILS 65.6 % (40-80); PLATELET COUNT 103 10x3/uL (130-400); RBC 3.15 10x6/uL (4.00-5.40); RDW 16.3 % (11.5-14.5); WBC 4.2 10x3/uL (4.8-10.8)
[2017-10-12 06:34] LABS: ANION GAP 12.5 mmol/L (8-16); CALCIUM 8.6 mg/dL (8.5-10.1); CARBON DIOXIDE 29.4 mmol/L (21.0-32.0)
[2017-10-12 06:35] LABS: CREATININE - SERUM 4.1 mg/dL (0.6-1.3); POTASSIUM - SERUM 3.9 mmol/L (3.5-5.1)
[2017-10-12 08:53] VITALS: BP 114/73
[2017-10-12 13:36] VITALS: BP 166/108
[2017-10-12 16:01] VITALS: BP 91/54
[2017-10-12 19:00] VITALS: BP 88/49
[2017-10-13] VITALS: BP 84/50
[2017-10-13 04:00] VITALS: BP 99/62
[2017-10-13 06:06] LABS: BASOPHILS 0.2 % (0-2); EOSINOPHILS 1.2 % (0-7); HEMATOCRIT 32.7 % (36.0-48.0); MCHC 30.6 g/dL (31.0-37.0); MCV 101.2 fL (80.0-100.0); MEAN PLATELET VOLUME 10.7 fL (7.4-10.4); MONOCYTES 10.5 % (2-11); NEUTROPHILS 65.1 % (40-80); PLATELET COUNT 109 10x3/uL (130-400); RBC 3.23 10x6/uL (4.00-5.40); RDW 16.2 % (11.5-14.5); WBC 4.2 10x3/uL (4.8-10.8)
[2017-10-13 06:16] LABS: ANION GAP 11.7 mmol/L (8-16); CARBON DIOXIDE 30.7 mmol/L (21.0-32.0); CREATININE - SERUM 3.4 mg/dL (0.6-1.3); POTASSIUM - SERUM 4.4 mmol/L (3.5-5.1)
[2017-10-13 07:46] VITALS: BP 106/70
[2017-10-13 11:39] VITALS: BP 102/61
[2017-10-13] MEDS ORDERED: OMNICEF300 MG PO (13:28)
[2017-10-13 21:40] VITALS: BP 107/67
[2017-10-14 00:47] VITALS: BP 104/73
[2017-10-14 05:38] LABS: BASOPHILS 0.2 % (0-2); HEMATOCRIT 32.2 % (36.0-48.0); HEMOGLOBIN 9.8 g/dL (12-16); IMMATURE GRANULOCYTES 0.2 % (0-5); LYMPHOCYTES 27.6 % (15-50); MCH 30.5 pg (26.0-34.0); MCHC 30.4 g/dL (31.0-37.0); MCV 100.3 fL (80.0-100.0); MEAN PLATELET VOLUME 10.3 fL (7.4-10.4); MONOCYTES 9.3 % (2-11); NEUTROPHILS 61.7 % (40-80); PLATELET COUNT 98 10x3/uL (130-400); RBC 3.21 10x6/uL (4.00-5.40); RDW 16.2 % (11.5-14.5); WBC 4.2 10x3/uL (4.8-10.8)
[2017-10-14 06:06] LABS: ANION GAP 13.1 mmol/L (8-16); CALCIUM 9.1 mg/dL (8.5-10.1); CARBON DIOXIDE 28.8 mmol/L (21.0-32.0); CREATININE - SERUM 4.2 mg/dL (0.6-1.3); POTASSIUM - SERUM 3.9 mmol/L (3.5-5.1)
[2017-10-14 06:44] VITALS: BP 107/64
[2017-10-14 08:11] VITALS: BP 120/73
[2017-10-14 11:26] VITALS: BP 124/77
[2017-10-14 16:53] VITALS: BP 128/71
== END 2017-10-14 17:49 | disposition home or self-care (01) | DRG 291 ==
LOC: D.ER 09:48 → D.M2 11:59 → D.EDHOLD 11:59 → D.M2 18:39
PROVIDERS: Emergency Medicine; Internal Medicine Nephrology
PROC: 5A1D70Z Performance of Urinary Filtration, Intermittent, Less than 6 Hours Per Day (ICD-10-PCS; principal; 2017-10-10)
DX: I13.2 Hypertensive heart and chronic kidney disease with heart failure and with stage 5 chronic kidney disease, or end stage renal disease (principal); N18.6 End stage renal disease; I50.33 Acute on chronic diastolic (congestive) heart failure; J96.21 Acute and chronic respiratory failure with hypoxia; J18.9 Pneumonia, unspecified organism; J98.11 Atelectasis; J44.0 Chronic obstructive pulmonary disease with (acute) lower respiratory infection; E87.70 Fluid overload, unspecified; Z99.2 Dependence on renal dialysis; I27.20 Pulmonary hypertension, unspecified; I25.10 Atherosclerotic heart disease of native coronary artery without angina pectoris; R00.0 Tachycardia, unspecified; E87.6 Hypokalemia; K21.9 Gastro-esophageal reflux disease without esophagitis; M81.0 Age-related osteoporosis without current pathological fracture; I08.1 Rheumatic disorders of both mitral and tricuspid valves; D69.6 Thrombocytopenia, unspecified

== ENCOUNTER 2017-10-15 08:00 | Inpatient (IN) | payer MEDICARE, OTHER ==
[~2017-10-15] VITALS: Ht 172.7 cm; Wt 50.8 kg
--- NOTE | ~2017-10-15 | EC ---
PATIENT:NEDA LIGHT DATE OF SERVICE: 10/15/17 SEX: F MEDICAL RECORD: [id number] DATE OF : 40 LOCATION:D.M2 D.210 AGE OF PATIENT: 77 ADMISSION DATE: 10/15/17 REFERRING PHYSICIAN: INTERPRETING PHYSICIAN: ANDREA MCKEON MD ECHOCARDIOGRAM REPORT ECHO CHARGES 4 ECHO COMPLETE CLINICAL DIAGNOSIS: PULMONARY HTN ECHOCARDIOGRAPHIC MEASUREMENTS (adult normal given) AC root (d.<3.7cm) 3.9 cm LV Septum d (<1.2 cm> 1.5 cm Valve Excursion 1.8 cm LV Septum (systole) 1.6 cm Left Atria (s.<4.0cm> 4.2 cm LVPW d(<1.2cm) 1.2 cm RV (d.<2.3cm) 6.1 cm LVPW (sytole) 1.5 cm LV diastole(<5.6CM) 5.2 cm MV E-F(>70mm/sec) cm LV systole 3.6 cm LVOT Diameter 1.6 cm MV exc.(>10mm) 1.1 cm Est.ejection fraction (50-75%) % Pericardial Effusion Y DOPPLER: LVIT cm/sec A 85.0 cm/sec E 55.0 cm/sec LA cm/sec RVSP 64 mmHg LVOT 140 cm/sec AOP1/2T m/s Asc. Ao 168 cm/sec RVOT 62 cm/sec RA cm/sec PA 134 cm/sec AV Gradient Peak 11.34mmHg AV Mean 5.16 mmHg AV Area 1.9 cm MV Gradient Peak 4.34 mmHg MV Mean 1.44 mmHg MV Area cm COMMENTS: Key Account Executive: Juliocesar DOYLE Supervisor [employer]: 1 Dr. Mckeon TAPE# PACS DATE OF SERVICE: 10/18/2017 Echocardiogram FINDINGS: 1. Left ventricular chamber size is within normal limits. Left ventricular systolic function is normal. Overall ejection fraction estimated at 60%. 2. Left atrium is enlarged at 4.2 cm. Right atrium and right ventricular chamber sizes are moderately to severely dilated. 3. Valvular structures have normal structure and motion. ECHOCARDIOGRAM REPORT [id number] NEDA LIGHT 4. Doppler interrogation reveals only trace mitral regurgitation, [id number] tricuspid regurgitation. No other valvular insufficiency or stenosis. Pulmonary systolic pressure is elevated estimated at 64 mmHg. 5. No evidence of pericardial effusion or left ventricular thrombus. TRANSINT:[id number] Voice Confirmation ID: [id number] DOCUMENT ID: [id number] ANDREA MCKEON MD at 1153 CC: [id number] DICTATION DATE: 10/18/17 1218 SOCIAL AND HUMAN SERVICES ASSISTANT: 10/18/17 1225 DIS IN 10/18/17 [place] [id number] [place] [id number]
--- NOTE | ~2017-10-15 | CN ---
PATIENT NAME:NEDA LIGHT MEDICAL RECORD: [id number] : 40 LOCATION:D. D.2102 ADMIT DATE: 10/15/17 ACCOUNT: [id number] CONSULTING PHYSICIAN: JOSÉ MIGUEL RICHARDS MD REFERRING PHYSICIAN: SHIRA ZAMORA MD DATE OF CONSULTATION: 10/16/2017 CONSULT REQUESTING PHYSICIAN: Asael Plata MD REASON FOR CONSULTATION: Dyspnea and pulmonary hypertension. HISTORY OF PRESENT ILLNESS: Ms. Light is a 77-year-old female who was just discharged on the 13 of October, the patient went home, coming back with worsening shortness of breath. She is also having associated nausea and vomiting. The patient states she cannot keep anything down. The chest radiographs show right upper lobe infiltrate. The patient was given prescription for the Letairis, but it looks like the insurance is not paying for her pulmonary hypertension medications. She was seen by my partner, Dr. Lee. REVIEW OF SYSTEMS: Mainly in the history of present illness. PAST MEDICAL HISTORY: 1. COPD. 2. Hypertension. 3. Iron deficiency anemia. 4. End-stage renal disease. 5. Gastroesophageal reflux disease. 6. Hypertension. 7. Depression. 8. Asthma. PAST SURGICAL HISTORY: 1. Hysterectomy. 2. Right nephrectomy. 3. Thyroidectomy. ALLERGIES: SHE IS ALLERGIC TO PENICILLIN. PRESENT MEDICATIONS: [employer] was reviewed. PERSONAL AND SOCIAL HISTORY: The patient is a nonsmoker, nondrinker. FAMILY HISTORY: Noncontributory. PHYSICAL EXAMINATION: GENERAL: Now, the patient is sitting in bed. She is not in acute distress. VITAL SIGNS: The blood pressure is 79/47, pulse is 79, respirations 19, temperature 97.5, SPO2 95% on 2 liters nasal cannula. HEENT: Conjunctivae pink, sclerae nonicteric. NECK: Supple, no JVD. CHEST: Excursion is minimal on both sides. There are no wheezes, no rales. HEART: Rhythm regular. There is a grade 2/6 systolic murmur, there is loud P2. ABDOMEN: Soft, bowel sounds present. No hepatosplenomegaly. RECTAL: Deferred. EXTREMITIES: No cyanosis, no clubbing, no pedal edema. CONSULT REPORT [id number] NEDA LIGHT SKIN: Warm, normal turgor. CENTRAL NERVOUS SYSTEM: The patient is awake and alert. There is no obvious cranial nerve abnormality. The gait was not tested. CHEST RADIOGRAPH: There is infiltrate in the right upper lobe. OTHER LABORATORY DATA: CBC: WBC 4.3, hemoglobin 10.4, hematocrit 32.8, platelet count 116. Chemistry: Sodium is 135, potassium is 4, BUN is 37, creatinine 3.8. IMPRESSION: 1. Chronic hypoxic respiratory failure. 2. Primary pulmonary hypertension of severe degree with right ventricular systolic pressure of 92. 3. Tricuspid regurgitation. 4. Pneumonia, right upper lobe, most likely had possible aspiration when the patient was vomiting. 5. Dyspnea with exertion. 6. Nausea and vomiting, the etiology not clear. 7. Severe restrictive lung disease. 8. Acute exacerbation of asthma. 9. Gastroesophageal reflux disease. 10. Renal failure. RECOMMENDATION: Start methylprednisolone IV, albuterol/ipratropium nebulizer, Brovana, budesonide nebulizer, discontinue cefaclor, start on cefepime, continue Levaquin IV. The patient has been given prescription for Letairis, but insurance is not paying it. She needs to be started on Letairis plus anticoagulant to prevent progression of the pulmonary hypertension. I discussed with the supportive employment case manager for approval of the medication. Dr. Plata, thank you for involving me in the care of Ms. Light. TRANSINT:[id number] Voice Confirmation ID: [id number] DOCUMENT ID: [id number] JOSÉ MIGUEL RICHARDS MD at 1340 CC: ASAEL PLATA [id number] DICTATION DATE: 10/16/17 1614 DEWER: 10/16/17 1649 DIS IN 10/18/17 [place] [id number] [place] [id number]
[~2017-10-15 08:00] MED LIST changes: +LETAIRIS5 MG PO; +LEVAQUIN250 MG PO; +PEPCID20 MG PO
[2017-10-15 11:17] LABS: BASOPHILS 0.2 % (0-2); EOSINOPHILS 0.7 % (0-7); HEMATOCRIT 32.8 % (36.0-48.0); HEMOGLOBIN 10.4 g/dL (12-16); IMMATURE GRANULOCYTES 0.2 % (0-5); LYMPHOCYTES 20.1 % (15-50); MCH 31.6 pg (26.0-34.0); MCHC 31.7 g/dL (31.0-37.0); MCV 99.7 fL (80.0-100.0); MEAN PLATELET VOLUME 10.8 fL (7.4-10.4); MONOCYTES 8.6 % (2-11); NEUTROPHILS 70.2 % (40-80); PLATELET COUNT 116 10x3/uL (130-400); RBC 3.29 10x6/uL (4.00-5.40); WBC 4.3 10x3/uL (4.8-10.8)
[2017-10-15 11:52] LABS: ALBUMIN 2.9 g/dL (3.4-5.0); ANION GAP 15.5 mmol/L (8-16); BILIRUBIN - TOTAL 0.89 mg/dL (0.2-1.3); CARBON DIOXIDE 26.4 mmol/L (21.0-32.0); CREATININE - SERUM 4.8 mg/dL (0.6-1.3); POTASSIUM - SERUM 3.9 mmol/L (3.5-5.1); PROTEIN - SERUM 5.9 g/dL (6.4-8.2)
[2017-10-15 11:56] LABS: MAGNESIUM - SERUM 1.8 mg/dL (1.8-2.4); TROPONIN-I 0.04 ng/mL (0.000-0.060)
[2017-10-16 06:24] LABS: BASOPHILS 0 % (0-2); EOSINOPHILS 0.5 % (0-7); HEMATOCRIT 32.4 % (36.0-48.0); HEMOGLOBIN 9.9 g/dL (12-16); IMMATURE GRANULOCYTES 0.2 % (0-5); LYMPHOCYTES 17.6 % (15-50); MCH 30.5 pg (26.0-34.0); MCHC 30.6 g/dL (31.0-37.0); MCV 99.7 fL (80.0-100.0); MEAN PLATELET VOLUME 10.5 fL (7.4-10.4); NEUTROPHILS 67.7 % (40-80); PLATELET COUNT 115 10x3/uL (130-400); RBC 3.25 10x6/uL (4.00-5.40); RDW 15.8 % (11.5-14.5); WBC 4.4 10x3/uL (4.8-10.8)
[2017-10-16 06:40] LABS: CALCIUM 8.9 mg/dL (8.5-10.1); CREATININE - SERUM 3.8 mg/dL (0.6-1.3)
[2017-10-16 08:02] VITALS: BP 89/50; BMI 14.7
[2017-10-16 11:34] VITALS: BP 79/47
[2017-10-16 14:45] VITALS: Ht 172.7 cm; Wt 50.8 kg
[2017-10-16 16:13] VITALS: BP 81/44
[2017-10-16 20:00] VITALS: BP 88/57
[2017-10-17] VITALS: BP 87/56
[2017-10-17 04:00] VITALS: BP 95/57
[2017-10-17 06:34] LABS: BASOPHILS 0 % (0-2); EOSINOPHILS 0 % (0-7); HEMATOCRIT 32.3 % (36.0-48.0); HEMOGLOBIN 9.9 g/dL (12-16); LYMPHOCYTES 14.7 % (15-50); MCH 30.9 pg (26.0-34.0); MCHC 30.7 g/dL (31.0-37.0); MCV 100.9 fL (80.0-100.0); MEAN PLATELET VOLUME 10.2 fL (7.4-10.4); MONOCYTES 9.8 % (2-11); NEUTROPHILS 75.5 % (40-80); PLATELET COUNT 112 10x3/uL (130-400); RDW 15.7 % (11.5-14.5)
[2017-10-17 06:42] LABS: WBC 1.8 10x3/uL (4.8-10.8)
[2017-10-17 06:52] LABS: ANION GAP 19.7 mmol/L (8-16); CALCIUM 7.6 mg/dL (8.5-10.1)
[2017-10-17 06:54] LABS: POTASSIUM - SERUM 4.7 mmol/L (3.5-5.1)
[2017-10-17 08:00] VITALS: BP 102/64
[2017-10-17 17:14] VITALS: BP 94/60
[2017-10-17 19:00] VITALS: BP 86/48
[2017-10-18 04:00] VITALS: BP 88/56
[2017-10-18 06:09] LABS: BASOPHILS 0 % (0-2); EOSINOPHILS 0 % (0-7); HEMATOCRIT 31.3 % (36.0-48.0); HEMOGLOBIN 9.6 g/dL (12-16); LYMPHOCYTES 10.9 % (15-50); MCH 30.9 pg (26.0-34.0); MCHC 30.7 g/dL (31.0-37.0); MCV 100.6 fL (80.0-100.0); MEAN PLATELET VOLUME 10.4 fL (7.4-10.4); MONOCYTES 10.2 % (2-11); NEUTROPHILS 78.9 % (40-80); RBC 3.11 10x6/uL (4.00-5.40); RDW 15.7 % (11.5-14.5)
[2017-10-18 06:16] LABS: PLATELET COUNT 144 10x3/uL (130-400); WBC 2.6 10x3/uL (4.8-10.8)
[2017-10-18 06:35] LABS: ANION GAP 17.4 mmol/L (8-16); CALCIUM 7.7 mg/dL (8.5-10.1); CARBON DIOXIDE 25.4 mmol/L (21.0-32.0)
[2017-10-18 06:45] LABS: POTASSIUM - SERUM 3.8 mmol/L (3.5-5.1)
[2017-10-18 09:15] VITALS: BP 99/60
[2017-10-18 11:39] VITALS: BP 100/63
[2017-10-18] MEDS ORDERED: LEVAQUIN250 MG PO (13:09)
[2017-10-18] MEDS ORDERED: MEDROL DOSE PACK4 MG PO (13:10)
[2017-10-18 16:43] VITALS: BP 90/52
== END 2017-10-18 17:52 | DRG 314 ==
LOC: D.ER 08:00 → D.M2 11:21 → D.EDHOLD 11:21 → D.M2 10-16 07:25
PROVIDERS: Emergency Medicine; Internal Medicine
DX: I27.0 Primary pulmonary hypertension (principal); N18.6 End stage renal disease; J18.9 Pneumonia, unspecified organism; I13.2 Hypertensive heart and chronic kidney disease with heart failure and with stage 5 chronic kidney disease, or end stage renal disease; J96.11 Chronic respiratory failure with hypoxia; J44.9 Chronic obstructive pulmonary disease, unspecified; I50.9 Heart failure, unspecified; Z99.2 Dependence on renal dialysis; K21.9 Gastro-esophageal reflux disease without esophagitis; F32.9 Major depressive disorder, single episode, unspecified; I07.1 Rheumatic tricuspid insufficiency; Z66 Do not resuscitate

== ENCOUNTER 2017-11-09 00:37 | Inpatient (IN) | payer MEDICARE, OTHER ==
[~2017-11-09] VITALS: Ht 172.7 cm; Wt 45.6 kg
--- NOTE | ~2017-11-09 | CN ---
PATIENT NAME:NEDA LIGHT MEDICAL RECORD: [id number] : 40 LOCATION:D. D.2135 ADMIT DATE: 11/09/17 ACCOUNT: [id number] CONSULTING PHYSICIAN: JOSÉ MIGUEL RICHARDS MD REFERRING PHYSICIAN: LAVELL VELASCO MD DATE OF CONSULTATION: 11/13/2017 CONSULT REQUESTING PHYSICIAN: Ann Flores MD REASON FOR CONSULTATION: Severe pulmonary hypertension, chronic hypoxic respiratory failure. HISTORY OF PRESENT ILLNESS: Ms. Light is a 77-year-old female who has history of severe pulmonary hypertension. The patient's Letairis was approved and she was getting it from [employer], but she quit taking it. She is on hemodialysis. She missed her dialysis and then went to the ER with shortness of breath, found out that she is in pulmonary edema. Also, there were elevated cardiac enzymes. REVIEW OF THE SYSTEMS: As in history of present illness. PAST MEDICAL HISTORY: 1. COPD. 2. Hypertension. 3. Iron-deficiency anemia. 4. End-stage renal disease, on hemodialysis. 5. Gastroesophageal reflux disease. 6. Hypertension. 7. Depression. 8. Possible asthma. PAST SURGICAL HISTORY: 1. She had hysterectomy. 2. Right nephrectomy. 3. Thyroidectomy. 4. Fistula placement. ALLERGIES: SHE IS ALLERGIC TO PENICILLIN. PRESENT MEDICATIONS: [email or web address] was reviewed. PERSONAL AND SOCIAL HISTORY: The patient is nonsmoker, nondrinker. FAMILY HISTORY: Noncontributory. PHYSICAL EXAMINATION: GENERAL: The patient is not in acute distress in bed and at rest, but she gets severe shortness of breath with mild exertion. VITAL SIGNS: The blood pressure is 89/58, pulse is 98, respiration is 19, temperature is 98.1, SpO2 is 96% on 8 liters oxymizer. HEENT: Conjunctivae are pink. Sclerae not icteric. NECK: Neck is supple. There is elevated JVD. CHEST: There is no wheeze. There are basal crackles. HEART: Rate and rhythm regular. There is a loud P2 component of the second heart sound. There is also murmur. CONSULT REPORT [id number] NEDA LIGHT ABDOMEN: Abdomen is soft. Bowel sounds present. No hepatosplenomegaly. RECTAL: Deferred. EXTREMITIES: No cyanosis. No clubbing. There is 1+ pedal edema. Chest radiograph on 11 of November; left basilar consolidation with small left pleural effusion. IMPRESSION: 1. Yybsv-ed-xikybjm hypoxic respiratory failure. 2. Acute exacerbation of COPD. 3. Anemia. 4. Congestive heart failure. 5. Dyspnea on exertion. 6. End-stage renal disease. 7. Elevated cardiac enzyme, possible stress leak. 8. Anemia. RECOMMENDATION: We will get the patient's Letairis from home. Albuterol and ipratropium nebulizer, Brovana and budesonide nebulizer, supplemental oxygen, methylprednisolone IV. Start her on empiric antibiotic to cover for gram-negative rods and for gram-positive cocci. Dr. Flores, thank you for involving me in the care of Ms. Light. TRANSINT:[id number] Voice Confirmation ID: [id number] DOCUMENT ID: [id number] JOSÉ MIGUEL RICHARDS MD at 1410 CC: [id number] DICTATION DATE: 11/13/171741 OUTREACH CONSULTANT: 11/13/172001 ADM IN [facility] [address] [place] [id number]
[~2017-11-09 00:37] MED LIST changes: +MEDROL DOSE PACK4 MG PO
[2017-11-09 04:00] VITALS: BP 143/85
[2017-11-09 04:59] VITALS: BMI 16.4
[2017-11-09] MEDS ORDERED: LETAIRIS5 MG PO (05:15)
[2017-11-09] MEDS ORDERED: MUCINEX600 MG PO (05:19)
[2017-11-09] MEDS ORDERED: ACETAMINOPHEN325 MG PO (05:22)
[2017-11-09] MEDS ORDERED: IPRAT-ALBUT 0.5-3 ML UPD (05:24)
[2017-11-09 06:59] LABS: BASOPHILS 0.2 % (0-2); EOSINOPHILS 1.2 % (0-7); HEMATOCRIT 25.4 % (36.0-48.0); HEMOGLOBIN 7.7 g/dL (12-16); IMMATURE GRANULOCYTES 0.2 % (0-5); LYMPHOCYTES 22.3 % (15-50); MCH 30.6 pg (26.0-34.0); MCHC 30.3 g/dL (31.0-37.0); MCV 100.8 fL (80.0-100.0); MEAN PLATELET VOLUME 9.6 fL (7.4-10.4); MONOCYTES 7.6 % (2-11); NEUTROPHILS 68.5 % (40-80); RBC 2.52 10x6/uL (4.00-5.40); RDW 15.6 % (11.5-14.5)
[2017-11-09 07:06] LABS: PLATELET COUNT 203 10x3/uL (130-400)
[2017-11-09 07:20] LABS: ALBUMIN 2.3 g/dL (3.4-5.0); ANION GAP 16.5 mmol/L (8-16); BILIRUBIN - TOTAL 0.7 mg/dL (0.2-1.3); CALCIUM 7.9 mg/dL (8.5-10.1); POTASSIUM - SERUM 3.5 mmol/L (3.5-5.1); PROTEIN - SERUM 5.8 g/dL (6.4-8.2)
[2017-11-09 07:53] VITALS: BP 97/60
[2017-11-09 11:00] VITALS: BP 94/60
[2017-11-09 12:37] VITALS: BMI 16.3
[2017-11-09 16:18] VITALS: BP 110/68
[2017-11-09 21:05] VITALS: BP 115/90
[2017-11-10 01:47] VITALS: BP 103/72
[2017-11-10 05:20] VITALS: BP 138/68
[2017-11-10 05:42] LABS: BASOPHILS 0.2 % (0-2); EOSINOPHILS 1.8 % (0-7); HEMATOCRIT 29.5 % (36.0-48.0); HEMOGLOBIN 9.2 g/dL (12-16); IMMATURE GRANULOCYTES 0.2 % (0-5); LYMPHOCYTES 23.6 % (15-50); MCH 30.2 pg (26.0-34.0); MCHC 31.2 g/dL (31.0-37.0); MEAN PLATELET VOLUME 9.5 fL (7.4-10.4); MONOCYTES 8.8 % (2-11); NEUTROPHILS 65.4 % (40-80); PLATELET COUNT 182 10x3/uL (130-400); RDW 17.7 % (11.5-14.5); WBC 4.5 10x3/uL (4.8-10.8)
[2017-11-10 05:44] LABS: MCV 96.7 fL (80.0-100.0); RBC 3.05 10x6/uL (4.00-5.40)
[2017-11-10 06:10] LABS: ANION GAP 16.9 mmol/L (8-16); CALCIUM 7.4 mg/dL (8.5-10.1); CARBON DIOXIDE 25.6 mmol/L (21.0-32.0); CREATININE - SERUM 4.9 mg/dL (0.6-1.3); POTASSIUM - SERUM 3.5 mmol/L (3.5-5.1)
[2017-11-10 07:34] VITALS: BP 130/64
[2017-11-10 09:51] VITALS: Ht 172.7 cm; Wt 45.6 kg
[2017-11-10 11:00] VITALS: BP 120/74
[2017-11-10 20:00] VITALS: BP 123/54
[2017-11-11] VITALS (7 sets, daily range): BP systolic 94–123; BP diastolic 53–78
[2017-11-11 06:27] LABS: BASOPHILS 0.2 % (0-2); EOSINOPHILS 1.8 % (0-7); HEMATOCRIT 31.1 % (36.0-48.0); HEMOGLOBIN 9.7 g/dL (12-16); IMMATURE GRANULOCYTES 0.2 % (0-5); LYMPHOCYTES 25.5 % (15-50); MCH 30.1 pg (26.0-34.0); MCHC 31.2 g/dL (31.0-37.0); MCV 96.6 fL (80.0-100.0); MEAN PLATELET VOLUME 9.4 fL (7.4-10.4); MONOCYTES 6.5 % (2-11); NEUTROPHILS 65.8 % (40-80); PLATELET COUNT 182 10x3/uL (130-400); RBC 3.22 10x6/uL (4.00-5.40); RDW 16.9 % (11.5-14.5); WBC 4.4 10x3/uL (4.8-10.8)
[2017-11-11 06:39] LABS: ANION GAP 13.5 mmol/L (8-16); CALCIUM 7.9 mg/dL (8.5-10.1); CARBON DIOXIDE 30.9 mmol/L (21.0-32.0); CREATININE - SERUM 3.6 mg/dL (0.6-1.3); POTASSIUM - SERUM 3.4 mmol/L (3.5-5.1)
[2017-11-12 04:00] VITALS: BP 125/85
[2017-11-12 05:02] LABS: BASOPHILS 0.2 % (0-2); EOSINOPHILS 1.8 % (0-7); HEMATOCRIT 33.1 % (36.0-48.0); HEMOGLOBIN 10.1 g/dL (12-16); IMMATURE GRANULOCYTES 0.2 % (0-5); LYMPHOCYTES 20.7 % (15-50); MCHC 30.5 g/dL (31.0-37.0); MCV 98.2 fL (80.0-100.0); MEAN PLATELET VOLUME 9.5 fL (7.4-10.4); MONOCYTES 9.8 % (2-11); NEUTROPHILS 67.3 % (40-80); PLATELET COUNT 178 10x3/uL (130-400); RBC 3.37 10x6/uL (4.00-5.40); RDW 16.6 % (11.5-14.5); WBC 4.9 10x3/uL (4.8-10.8)
[2017-11-12 05:31] LABS: ANION GAP 14.4 mmol/L (8-16); CALCIUM 7.8 mg/dL (8.5-10.1); POTASSIUM - SERUM 3.4 mmol/L (3.5-5.1)
[2017-11-12 05:35] LABS: CREATININE - SERUM 4.6 mg/dL (0.6-1.3)
[2017-11-12 08:35] VITALS: BP 119/67
[2017-11-12 15:34] VITALS: BP 84/56
[2017-11-12 21:09] VITALS: BP 98/61
[2017-11-13 04:47] LABS: BASOPHILS 0.2 % (0-2); EOSINOPHILS 1.6 % (0-7); HEMATOCRIT 30.7 % (36.0-48.0); HEMOGLOBIN 9.1 g/dL (12-16); MCH 29.8 pg (26.0-34.0); MCHC 29.6 g/dL (31.0-37.0); MEAN PLATELET VOLUME 9.7 fL (7.4-10.4); NEUTROPHILS 61.2 % (40-80); PLATELET COUNT 165 10x3/uL (130-400); RBC 3.05 10x6/uL (4.00-5.40); RDW 16.4 % (11.5-14.5); WBC 4.5 10x3/uL (4.8-10.8)
[2017-11-13 04:49] LABS: MCV 100.7 fL (80.0-100.0)
[2017-11-13 04:57] LABS: ANION GAP 12.8 mmol/L (8-16); CALCIUM 7.8 mg/dL (8.5-10.1); CARBON DIOXIDE 29.6 mmol/L (21.0-32.0); POTASSIUM - SERUM 3.4 mmol/L (3.5-5.1)
[2017-11-13 05:08] LABS: CREATININE - SERUM 3.4 mg/dL (0.6-1.3)
[2017-11-13 06:16] VITALS: BP 102/66
[2017-11-13 08:27] VITALS: BP 96/62
[2017-11-13 11:46] VITALS: BP 81/51
[2017-11-13 15:34] VITALS: BP 89/58
[2017-11-13 20:00] VITALS: BP 114/69
[2017-11-14] VITALS: BP 118/66
[2017-11-14 04:00] VITALS: BP 120/65
[2017-11-14 04:54] LABS: BASOPHILS 0 % (0-2); EOSINOPHILS 0 % (0-7); HEMATOCRIT 34.3 % (36.0-48.0); HEMOGLOBIN 10.6 g/dL (12-16); IMMATURE GRANULOCYTES 0.3 % (0-5); LYMPHOCYTES 17.3 % (15-50); MCH 30.2 pg (26.0-34.0); MCHC 30.9 g/dL (31.0-37.0); MEAN PLATELET VOLUME 9.9 fL (7.4-10.4); NEUTROPHILS 81.4 % (40-80); PLATELET COUNT 189 10x3/uL (130-400); RBC 3.51 10x6/uL (4.00-5.40)
[2017-11-14 05:05] LABS: ANION GAP 18.9 mmol/L (8-16); CALCIUM 7.8 mg/dL (8.5-10.1); CARBON DIOXIDE 25.3 mmol/L (21.0-32.0)
[2017-11-14 05:06] LABS: MCV 97.7 fL (80.0-100.0)
[2017-11-14 05:16] LABS: CREATININE - SERUM 4.6 mg/dL (0.6-1.3); POTASSIUM - SERUM 4.2 mmol/L (3.5-5.1)
[2017-11-14 07:49] VITALS: BP 108/71
[2017-11-14 15:14] VITALS: BP 93/58
[2017-11-14 20:00] VITALS: BP 96/51
[2017-11-15] VITALS: BP 95/64
[2017-11-15 04:00] VITALS: BP 117/66
[2017-11-15 07:38] VITALS: BP 110/72
[2017-11-15 11:14] VITALS: BP 103/64
[2017-11-15 15:23] VITALS: BP 119/73
[2017-11-15] MEDS ORDERED: PULMICORT0.5 MG/21 UPD (17:29)
[2017-11-15] MEDS ORDERED: DOXYCYCLINE HY100 M2 PO (17:31)
[2017-11-15] MEDS ORDERED: BROVANA15 MCG/2 M INH (17:31)
[2017-11-15] MEDS ORDERED: PREDNISONE10 MG PO (17:32)
[2017-11-15 20:00] VITALS: BP 107/66
[2017-11-16 04:00] VITALS: BP 123/48
[2017-11-16 09:26] VITALS: BP 91/65
== END 2017-11-16 16:08 | DRG 314 ==
LOC: D.M2 00:37
PROVIDERS: Internal Medicine Nephrology
PROC: 5A1D70Z Performance of Urinary Filtration, Intermittent, Less than 6 Hours Per Day (ICD-10-PCS; principal; 2017-11-10)
DX: I27.20 Pulmonary hypertension, unspecified (principal); N18.6 End stage renal disease; J96.21 Acute and chronic respiratory failure with hypoxia; I24.8 Other forms of acute ischemic heart disease; J44.1 Chronic obstructive pulmonary disease with (acute) exacerbation; I13.2 Hypertensive heart and chronic kidney disease with heart failure and with stage 5 chronic kidney disease, or end stage renal disease; Z99.2 Dependence on renal dialysis; I25.10 Atherosclerotic heart disease of native coronary artery without angina pectoris; F41.9 Anxiety disorder, unspecified; F32.9 Major depressive disorder, single episode, unspecified; K21.9 Gastro-esophageal reflux disease without esophagitis; D63.1 Anemia in chronic kidney disease; I50.9 Heart failure, unspecified; R50.9 Fever, unspecified

== ENCOUNTER 2017-11-28 09:02 | Inpatient (IN) | payer MEDICARE, OTHER ==
[~2017-11-28] VITALS: Ht 172.7 cm; Wt 50.6 kg
--- NOTE | ~2017-11-28 | EC ---
PATIENT:NEDA LIGHT DATE OF SERVICE: 11/28/17 SEX: F MEDICAL RECORD: [id number] DATE OF : 40 LOCATION:D.M2 D.212 AGE OF PATIENT: 77 ADMISSION DATE: 11/28/17 REFERRING PHYSICIAN: INTERPRETING PHYSICIAN: DEE ALEX MD ECHOCARDIOGRAM REPORT ECHO CHARGES 5 ECHO LIMITED Date: 11/30 1 DOPPLER ECHO COLOR FLOW 2 DOPPLER ECHO PULSE CLINICAL DIAGNOSIS: PULMONARY HTN ECHOCARDIOGRAPHIC MEASUREMENTS (adult normal given) AC root (d.<3.7cm) 0 cm LV Septum d (<1.2 cm> 0 cm Valve Excursion 0 cm LV Septum (systole) 0 cm Left Atria (s.<4.0cm> 0 cm LVPW d(<1.2cm) 0 cm RV (d.<2.3cm) 0 cm LVPW (sytole) 0 cm LV diastole(<5.6CM) 0 cm MV E-F(>70mm/sec) 0 cm LV systole 0 cm LVOT Diameter 0 cm MV exc.(>10mm) 0 cm Est.ejection fraction (50-75%) 0 % DOPPLER: LVIT cm/sec A 0 cm/sec E 0 cm/sec LA 0 cm/sec RVSP 73.0 mmHg LVOT 0 cm/sec AOP1/2T 0 m/s Asc. Ao 0 cm/sec RVOT 0 cm/sec RA 0 cm/sec PA 0 cm/sec AV Gradient Peak 0 mmHg AV Mean 0 mmHg AV Area 0 cm MV Gradient Peak 0 mmHg MV Mean 0 mmHg MV Area 0 cm COMMENTS: LIMITED STUDY (2-D,COLOR,DOPPLER) COMPLETE ECHO DONE 10/18/17 Merchandise Associate: Kelsey BRUCE[address] Builder: 3 Dr. Millard TAPE# PACS Pericardial Effusion N DATE OF SERVICE: Grossly LVH is present. LV internal dimension is normal. Wall motion normal. EF is greater than or equal to 55%. Aortic valve appears tricuspid with good valve excursion. Left atrium appears normal. Mitral valve shows no prolapse. [id number] MR. Right-sided chambers appeared dilated, severe TR by color flow imaging. Estimated RV systolic pressure is greater than or equal to 73 mmHg via the continuity equation. TRANSINT:[id number] Voice Confirmation ID: [id number] DOCUMENT ID: [id number] ECHOCARDIOGRAM REPORT [id number] NEDA LIGHT GREGORY A MD at 1132 CC: [id number] DICTATION DATE: 12/01/17 1119 SENIOR BUSINESS DEVELOPMENT MANAGER: 12/01/[address] [facility] [address] [place] [address]
[~2017-11-28 09:02] MED LIST changes: +ACETAMINOPHEN325 MG PO; +BROVANA15 MCG/2 M INH; +DOXYCYCLINE HY100 M2 PO; +IPRAT-ALBUT 0.5-3 ML UPD; +MUCINEX600 MG PO; +PREDNISONE10 MG PO; +PULMICORT0.5 MG/21 UPD
[2017-11-28 10:17] LABS: ANION GAP 18.3 mmol/L (8-16); BILIRUBIN - TOTAL 1.11 mg/dL (0.2-1.3); CALCIUM 8.5 mg/dL (8.5-10.1); CARBON DIOXIDE 26.1 mmol/L (21.0-32.0); CREATININE - SERUM 5.3 mg/dL (0.6-1.3); POTASSIUM - SERUM 4.4 mmol/L (3.5-5.1); PROTEIN - SERUM 6.5 g/dL (6.4-8.2)
[2017-11-28 10:30] LABS: BASOPHILS 0.1 % (0-2); HEMATOCRIT 32.7 % (36.0-48.0); HEMOGLOBIN 10.3 g/dL (12-16); IMMATURE GRANULOCYTES 0.3 % (0-5); LYMPHOCYTES 11.3 % (15-50); MCH 30.8 pg (26.0-34.0); MCHC 31.5 g/dL (31.0-37.0); MCV 97.9 fL (80.0-100.0); MONOCYTES 6.9 % (2-11); NEUTROPHILS 80.4 % (40-80); PLATELET COUNT 132 10x3/uL (130-400); RBC 3.34 10x6/uL (4.00-5.40); RDW 17.7 % (11.5-14.5); WBC 10.4 10x3/uL (4.8-10.8)
[2017-11-28 10:34] LABS: TROPONIN-I 0.06 ng/mL (0.000-0.060)
[2017-11-28 11:26] LABS: APTT 28.9 SECONDS (22.8-39.4); D-DIMER-QUANTITATIVE 2.79 ug/mLFEU (0.20-0.54); INR 1.01 (0.85-1.17); PROTIME 12.9 SECONDS (11.6-15.0)
[2017-11-28 16:58] VITALS: BP 102/62; BMI 16.6
[2017-11-28 18:21] VITALS: BP 100/41
[2017-11-28 19:00] VITALS: BP 107/53
[2017-11-28] MEDS ORDERED: ZOFRAN4 MG PO (19:28)
[2017-11-28] MEDS ORDERED: MEGACE40 MG PO (19:29)
[2017-11-28] MEDS ORDERED: MIDODRINE HCL10 MG PO (19:31)
[2017-11-28] MEDS ORDERED: LETAIRIS5 MG PO (19:33)
[2017-11-28] MEDS ORDERED: FLUTICASONE PRO16 GM NASAL (19:35)
[2017-11-29] VITALS (13 sets, daily range): BP systolic 94–160; BP diastolic 56–74; Ht 172.7 cm; Wt 50.6 kg
[2017-11-29 06:26] LABS: BASOPHILS 0 % (0-2); EOSINOPHILS 0 % (0-7); HEMATOCRIT 29.3 % (36.0-48.0); HEMOGLOBIN 9.1 g/dL (12-16); IMMATURE GRANULOCYTES 0.2 % (0-5); LYMPHOCYTES 10.6 % (15-50); MCH 30.2 pg (26.0-34.0); MCHC 31.1 g/dL (31.0-37.0); MCV 97.3 fL (80.0-100.0); MEAN PLATELET VOLUME 9.7 fL (7.4-10.4); MONOCYTES 1.6 % (2-11); NEUTROPHILS 87.6 % (40-80); PLATELET COUNT 145 10x3/uL (130-400); RBC 3.01 10x6/uL (4.00-5.40); RDW 17.4 % (11.5-14.5)
[2017-11-29 06:39] LABS: WBC 4.5 10x3/uL (4.8-10.8)
[2017-11-29 06:48] LABS: ALBUMIN 2.7 g/dL (3.4-5.0); BILIRUBIN - TOTAL 0.72 mg/dL (0.2-1.3); CALCIUM 7.9 mg/dL (8.5-10.1); CARBON DIOXIDE 21.9 mmol/L (21.0-32.0); MAGNESIUM - SERUM 2.1 mg/dL (1.8-2.4); PROTEIN - SERUM 6.1 g/dL (6.4-8.2)
[2017-11-29 06:49] LABS: ANION GAP 23.2 mmol/L (8-16); POTASSIUM - SERUM 5.1 mmol/L (3.5-5.1)
[2017-11-29] MEDS ORDERED: MIDODRINE HCL5 MG PO (07:56)
[2017-11-29] MEDS ORDERED: SINGULAIR10 MG PO (07:58)
[2017-11-29] MEDS ORDERED: ZOFRAN4 MG PO (07:59)
[2017-11-29] MEDS ORDERED: MEGACE40 MG PO (07:59)
[2017-11-30] VITALS (12 sets, daily range): BP systolic 85–104; BP diastolic 52–93
[2017-11-30 04:56] LABS: BASOPHILS 0 % (0-2); EOSINOPHILS 0 % (0-7); HEMATOCRIT 28.6 % (36.0-48.0); HEMOGLOBIN 8.9 g/dL (12-16); IMMATURE GRANULOCYTES 0.1 % (0-5); LYMPHOCYTES 6.6 % (15-50); MCH 30.6 pg (26.0-34.0); MCHC 31.1 g/dL (31.0-37.0); MCV 98.3 fL (80.0-100.0); MEAN PLATELET VOLUME 9.8 fL (7.4-10.4); MONOCYTES 3.1 % (2-11); NEUTROPHILS 90.2 % (40-80); PLATELET COUNT 148 10x3/uL (130-400); RBC 2.91 10x6/uL (4.00-5.40); RDW 17.4 % (11.5-14.5)
[2017-11-30 04:58] LABS: WBC 6.8 10x3/uL (4.8-10.8)
[2017-11-30 06:03] LABS: ALBUMIN 2.7 g/dL (3.4-5.0); BILIRUBIN - TOTAL 0.5 mg/dL (0.2-1.3); CALCIUM 8.8 mg/dL (8.5-10.1); PHOSPHOROUS 7.4 mg/dL (2.5-4.9); POTASSIUM - SERUM 4.6 mmol/L (3.5-5.1)
[2017-11-30 06:08] LABS: ANION GAP 16.1 mmol/L (8-16); CARBON DIOXIDE 27.5 mmol/L (21.0-32.0); CREATININE - SERUM 3.4 mg/dL (0.6-1.3)
[2017-12-01] VITALS: BP 117/63
[2017-12-01 04:00] VITALS: BP 108/72
[2017-12-01 06:33] LABS: BASOPHILS 0 % (0-2); EOSINOPHILS 0 % (0-7); HEMATOCRIT 28.6 % (36.0-48.0); HEMOGLOBIN 8.8 g/dL (12-16); IMMATURE GRANULOCYTES 0.3 % (0-5); LYMPHOCYTES 5.7 % (15-50); MCH 30.3 pg (26.0-34.0); MCHC 30.8 g/dL (31.0-37.0); MCV 98.6 fL (80.0-100.0); MEAN PLATELET VOLUME 9.5 fL (7.4-10.4); MONOCYTES 2.3 % (2-11); NEUTROPHILS 91.7 % (40-80); PLATELET COUNT 147 10x3/uL (130-400); RDW 17.2 % (11.5-14.5)
[2017-12-01 07:03] LABS: ALBUMIN 2.6 g/dL (3.4-5.0); ANION GAP 18.4 mmol/L (8-16); BILIRUBIN - TOTAL 0.7 mg/dL (0.2-1.3); CALCIUM 8.4 mg/dL (8.5-10.1); CARBON DIOXIDE 24.3 mmol/L (21.0-32.0); MAGNESIUM - SERUM 1.9 mg/dL (1.8-2.4); POTASSIUM - SERUM 4.7 mmol/L (3.5-5.1); PROTEIN - SERUM 5.7 g/dL (6.4-8.2)
[2017-12-01 07:05] LABS: CREATININE - SERUM 4.8 mg/dL (0.6-1.3); PHOSPHOROUS 9.5 mg/dL (2.5-4.9)
[2017-12-01 08:52] VITALS: BP 123/75
[2017-12-01 16:21] VITALS: BP 130/77
[2017-12-01 20:06] VITALS: BP 112/65
[2017-12-02] VITALS (7 sets, daily range): BP systolic 115–142; BP diastolic 60–87
[2017-12-02 05:54] LABS: BASOPHILS 0 % (0-2); EOSINOPHILS 0 % (0-7); HEMATOCRIT 30.7 % (36.0-48.0); HEMOGLOBIN 9.5 g/dL (12-16); IMMATURE GRANULOCYTES 0.2 % (0-5); LYMPHOCYTES 6.5 % (15-50); MCH 30.4 pg (26.0-34.0); MCHC 30.9 g/dL (31.0-37.0); MCV 98.4 fL (80.0-100.0); MEAN PLATELET VOLUME 9.9 fL (7.4-10.4); MONOCYTES 4.4 % (2-11); NEUTROPHILS 88.9 % (40-80); PLATELET COUNT 161 10x3/uL (130-400); RBC 3.12 10x6/uL (4.00-5.40); RDW 16.6 % (11.5-14.5); WBC 8.3 10x3/uL (4.8-10.8)
[2017-12-02 06:15] LABS: ALBUMIN 2.6 g/dL (3.4-5.0); ANION GAP 15.4 mmol/L (8-16); BILIRUBIN - TOTAL 0.8 mg/dL (0.2-1.3); CALCIUM 8.6 mg/dL (8.5-10.1); CARBON DIOXIDE 28.2 mmol/L (21.0-32.0); CREATININE - SERUM 3.6 mg/dL (0.6-1.3); MAGNESIUM - SERUM 1.8 mg/dL (1.8-2.4); PHOSPHOROUS 7.5 mg/dL (2.5-4.9); POTASSIUM - SERUM 4.6 mmol/L (3.5-5.1); PROTEIN - SERUM 5.7 g/dL (6.4-8.2)
[2017-12-03 04:00] VITALS: BP 123/65
[2017-12-03 04:43] LABS: BASOPHILS 0 % (0-2); EOSINOPHILS 0 % (0-7); HEMATOCRIT 30.1 % (36.0-48.0); HEMOGLOBIN 9.5 g/dL (12-16); IMMATURE GRANULOCYTES 0.3 % (0-5); LYMPHOCYTES 9.1 % (15-50); MCH 30.6 pg (26.0-34.0); MCHC 31.6 g/dL (31.0-37.0); MCV 97.1 fL (80.0-100.0); MEAN PLATELET VOLUME 9.9 fL (7.4-10.4); MONOCYTES 4.4 % (2-11); NEUTROPHILS 86.2 % (40-80); PLATELET COUNT 162 10x3/uL (130-400); RDW 16.3 % (11.5-14.5); WBC 7.5 10x3/uL (4.8-10.8)
[2017-12-03 05:13] LABS: ALBUMIN 2.5 g/dL (3.4-5.0); BILIRUBIN - TOTAL 0.9 mg/dL (0.2-1.3); CALCIUM 8.5 mg/dL (8.5-10.1); CARBON DIOXIDE 27.2 mmol/L (21.0-32.0); MAGNESIUM - SERUM 1.7 mg/dL (1.8-2.4); PROTEIN - SERUM 5.4 g/dL (6.4-8.2)
[2017-12-03 05:15] LABS: CREATININE - SERUM 4.6 mg/dL (0.6-1.3); PHOSPHOROUS 9.1 mg/dL (2.5-4.9)
[2017-12-03 05:48] LABS: ANION GAP 17.4 mmol/L (8-16); POTASSIUM - SERUM 4.6 mmol/L (3.5-5.1)
[2017-12-03 09:42] VITALS: BP 136/82
[2017-12-03 12:39] VITALS: BP 148/68
[2017-12-03 16:41] VITALS: BP 127/68
[2017-12-03 19:00] VITALS: BP 110/65
[2017-12-04 04:00] VITALS: BP 128/66
[2017-12-04 06:05] LABS: ALBUMIN 2.6 g/dL (3.4-5.0); ANION GAP 22.6 mmol/L (8-16); BILIRUBIN - TOTAL 1.04 mg/dL (0.2-1.3); CALCIUM 8.9 mg/dL (8.5-10.1); CARBON DIOXIDE 22.7 mmol/L (21.0-32.0); POTASSIUM - SERUM 4.3 mmol/L (3.5-5.1); PROTEIN - SERUM 5.6 g/dL (6.4-8.2)
[2017-12-04 06:13] LABS: CREATININE - SERUM 5.8 mg/dL (0.6-1.3)
[2017-12-04 06:17] LABS: BASOPHILS 0 % (0-2); EOSINOPHILS 0 % (0-7); HEMATOCRIT 31.5 % (36.0-48.0); IMMATURE GRANULOCYTES 0.3 % (0-5); LYMPHOCYTES 6.2 % (15-50); MCH 30.7 pg (26.0-34.0); MCHC 31.7 g/dL (31.0-37.0); MCV 96.6 fL (80.0-100.0); MEAN PLATELET VOLUME 9.9 fL (7.4-10.4); MONOCYTES 2.4 % (2-11); NEUTROPHILS 91.1 % (40-80); PLATELET COUNT 189 10x3/uL (130-400); RBC 3.26 10x6/uL (4.00-5.40); RDW 16.1 % (11.5-14.5); WBC 9.2 10x3/uL (4.8-10.8)
[2017-12-04 08:35] VITALS: BP 129/70
[2017-12-04 11:35] VITALS: BP 126/70
[2017-12-04 20:00] VITALS: BP 84/62
[2017-12-05] VITALS: BP 96/56
[2017-12-05 04:00] VITALS: BP 110/62
[2017-12-05 08:00] VITALS: BP 112/61
[2017-12-05 11:39] VITALS: BP 108/58
[2017-12-05 15:52] VITALS: BP 130/64
[2017-12-05 19:00] VITALS: BP 104/58
[2017-12-06 04:00] VITALS: BP 125/67
[2017-12-06 09:44] VITALS: BP 102/58
[2017-12-06] MEDS ORDERED: ELIQUIS2.5 MG PO (12:55)
[2017-12-06] MEDS ORDERED: PREDNISONE20 MG PO (12:56)
[2017-12-06] MEDS ORDERED: LINEZOLID600 MG PO (13:30)
[2017-12-06 16:20] VITALS: BP 120/68
== END 2017-12-06 17:45 | DRG 175 ==
LOC: D.ER 09:02 → D.M2 13:13 → D.ICU 13:13 → D.M2 11-30 18:21
PROVIDERS: Family Medicine
DX: I26.99 Other pulmonary embolism without acute cor pulmonale (principal); N18.6 End stage renal disease; J96.21 Acute and chronic respiratory failure with hypoxia; E43 Unspecified severe protein-calorie malnutrition; I13.2 Hypertensive heart and chronic kidney disease with heart failure and with stage 5 chronic kidney disease, or end stage renal disease; I50.32 Chronic diastolic (congestive) heart failure; J44.1 Chronic obstructive pulmonary disease with (acute) exacerbation; J90 Pleural effusion, not elsewhere classified; J45.901 Unspecified asthma with (acute) exacerbation; Z68.1 Body mass index [BMI] 19.9 or less, adult; I48.91 Unspecified atrial fibrillation; Z99.2 Dependence on renal dialysis; I27.20 Pulmonary hypertension, unspecified; D63.1 Anemia in chronic kidney disease; M19.90 Unspecified osteoarthritis, unspecified site; K21.9 Gastro-esophageal reflux disease without esophagitis; I25.10 Atherosclerotic heart disease of native coronary artery without angina pectoris; F41.8 Other specified anxiety disorders; R40.0 Somnolence

== ENCOUNTER 2017-12-19 19:47 | Inpatient (IN) | payer MEDICARE, OTHER ==
[~2017-12-19] VITALS: Ht 172.7 cm; Wt 47.3 kg
[~2017-12-19 19:47] MED LIST changes: +ELIQUIS2.5 MG PO; +LINEZOLID600 MG PO; +MIDODRINE HCL10 MG PO; +MIDODRINE HCL5 MG PO; +ZOFRAN4 MG PO
[2017-12-20] VITALS: BP 91/50
[2017-12-20 00:14] VITALS: BP 112/70; BMI 16.7
[2017-12-20 04:00] VITALS: BP 100/51
[2017-12-20 05:44] LABS: BASOPHILS 0 % (0-2); EOSINOPHILS 0.7 % (0-7); HEMATOCRIT 22.6 % (36.0-48.0); IMMATURE GRANULOCYTES 0.2 % (0-5); LYMPHOCYTES 19.3 % (15-50); MCHC 32.3 g/dL (31.0-37.0); MEAN PLATELET VOLUME 10.1 fL (7.4-10.4); NEUTROPHILS 71.8 % (40-80); RBC 2.43 10x6/uL (4.00-5.40); RDW 17.5 % (11.5-14.5); WBC 4.1 10x3/uL (4.8-10.8)
[2017-12-20 05:58] LABS: HEMOGLOBIN 7.3 g/dL (12-16); PLATELET COUNT 45 10x3/uL (130-400)
[2017-12-20 05:59] LABS: INR 1.18 (0.85-1.17); PROTIME 14.5 SECONDS (11.6-15.0)
[2017-12-20 06:02] LABS: ANION GAP 9.4 mmol/L (8-16); CALCIUM 7.3 mg/dL (8.5-10.1); CARBON DIOXIDE 29.7 mmol/L (21.0-32.0); CREATININE - SERUM 2.5 mg/dL (0.6-1.3); PHOSPHOROUS 2.5 mg/dL (2.5-4.9); POTASSIUM - SERUM 3.1 mmol/L (3.5-5.1)
[2017-12-20 06:37] LABS: PLATELET ESTIMATE DECREASED
[2017-12-20 08:29] VITALS: BP 90/49
[2017-12-20 09:44] LABS: % SATURATION 75 % (15-55); IRON 126 ug/dl (35-150); TOTAL IRON BIND CAPACITY 167 ug/dl (260-445)
[2017-12-20 09:57] LABS: UNSAT IRON BIND CAPACITY 41 ug/dl (150-375)
[2017-12-20 10:25] LABS: MAGNESIUM - SERUM 1.6 mg/dL (1.8-2.4)
[2017-12-20 11:45] VITALS: BP 97/51
[2017-12-20 12:49] VITALS: BMI 16.7
[2017-12-20 16:53] LABS: APPEARANCE HAZY (CLEAR); BILIRUBIN 2+ (NEGATIVE); COLOR YELLOW (YELLOW); GLUCOSE NEGATIVE (NEGATIVE); KETONE NEGATIVE (NEGATIVE); NITRITE NEGATIVE (NEGATIVE); PROTEIN 1+ mg/dL (NEGATIVE); SPECIFIC GRAVITY 1.005 (1.005-1.020); UROBILINOGEN NORMAL (NORMAL)
[2017-12-20 16:55] LABS: BACTERIA MANY /hpf (NONE SEEN); RED CELLS - URINE 0-5 /hpf (0-5); WHITE CELLS - URINE >50 /hpf (0-5)
[2017-12-20 20:00] VITALS: BP 100/64
[2017-12-21 02:57] VITALS: BP 119/67
[2017-12-21 05:27] VITALS: BP 139/70
[2017-12-21 06:30] LABS: BASOPHILS 0.2 % (0-2); EOSINOPHILS 0.7 % (0-7); IMMATURE GRANULOCYTES 0.9 % (0-5); LYMPHOCYTES 25.3 % (15-50); MCH 28.3 pg (26.0-34.0); MCHC 32.2 g/dL (31.0-37.0); MEAN PLATELET VOLUME 11.2 fL (7.4-10.4); MONOCYTES 7.1 % (2-11); NEUTROPHILS 65.8 % (40-80); RDW 18.9 % (11.5-14.5)
[2017-12-21 06:34] LABS: HEMATOCRIT 30.7 % (36.0-48.0); HEMOGLOBIN 9.9 g/dL (12-16); MCV 87.7 fL (80.0-100.0); PLATELET COUNT 58 10x3/uL (130-400); WBC 5.8 10x3/uL (4.8-10.8)
[2017-12-21 06:53] LABS: ALBUMIN 2.2 g/dL (3.4-5.0); ANION GAP 13.2 mmol/L (8-16); CALCIUM 7.5 mg/dL (8.5-10.1); CARBON DIOXIDE 28.4 mmol/L (21.0-32.0); PHOSPHOROUS 2.4 mg/dL (2.5-4.9); PROTEIN - SERUM 4.5 g/dL (6.4-8.2)
[2017-12-21 07:04] LABS: CREATININE - SERUM 3.4 mg/dL (0.6-1.3); POTASSIUM - SERUM 3.6 mmol/L (3.5-5.1)
[2017-12-21 08:22] LABS: FOLATE (FOLIC ACID) - SERUM 5.3 ng/mL (>3.0)
[2017-12-21 12:15] VITALS: BP 90/52
[2017-12-21 15:42] VITALS: BP 93/55
[2017-12-21 20:00] VITALS: BP 118/71
[2017-12-22] VITALS (18 sets, daily range): BP systolic 104–146; BP diastolic 67–88
[2017-12-22 06:41] LABS: BASOPHILS 0.3 % (0-2); EOSINOPHILS 0.1 % (0-7); HEMATOCRIT 32.4 % (36.0-48.0); HEMOGLOBIN 10.7 g/dL (12-16); LYMPHOCYTES 32.7 % (15-50); MCV 87.8 fL (80.0-100.0); MEAN PLATELET VOLUME 10.9 fL (7.4-10.4); MONOCYTES 7.3 % (2-11); NEUTROPHILS 58.6 % (40-80); RBC 3.69 10x6/uL (4.00-5.40); RDW 18.2 % (11.5-14.5)
[2017-12-22 06:48] LABS: PLATELET COUNT 86 10x3/uL (130-400)
[2017-12-22 06:59] LABS: ALBUMIN 2.3 g/dL (3.4-5.0); ANION GAP 11.9 mmol/L (8-16); BILIRUBIN - TOTAL 0.83 mg/dL (0.2-1.3); CALCIUM 8.1 mg/dL (8.5-10.1); CREATININE - SERUM 2.6 mg/dL (0.6-1.3); PHOSPHOROUS 2.2 mg/dL (2.5-4.9); POTASSIUM - SERUM 3.9 mmol/L (3.5-5.1); PROTEIN - SERUM 5.2 g/dL (6.4-8.2)
[2017-12-23] VITALS (22 sets, daily range): BP systolic 111–146; BP diastolic 73–101
[2017-12-23 03:57] LABS: ALBUMIN 2.5 g/dL (3.4-5.0); ANION GAP 14.3 mmol/L (8-16); BILIRUBIN - TOTAL 0.88 mg/dL (0.2-1.3); CALCIUM 7.9 mg/dL (8.5-10.1); CARBON DIOXIDE 26.4 mmol/L (21.0-32.0); CREATININE - SERUM 3.8 mg/dL (0.6-1.3); PHOSPHOROUS 3.1 mg/dL (2.5-4.9); POTASSIUM - SERUM 3.7 mmol/L (3.5-5.1); PROTEIN - SERUM 5.7 g/dL (6.4-8.2)
[2017-12-23 03:58] LABS: BASOPHILS 0.2 % (0-2); EOSINOPHILS 0 % (0-7); HEMATOCRIT 36.4 % (36.0-48.0); HEMOGLOBIN 11.7 g/dL (12-16); IMMATURE GRANULOCYTES 1.1 % (0-5); LYMPHOCYTES 23.4 % (15-50); MCH 28.8 pg (26.0-34.0); MCHC 32.1 g/dL (31.0-37.0); MCV 89.7 fL (80.0-100.0); MEAN PLATELET VOLUME 10.1 fL (7.4-10.4); MONOCYTES 3.4 % (2-11); NEUTROPHILS 71.9 % (40-80); RBC 4.06 10x6/uL (4.00-5.40); RDW 18.4 % (11.5-14.5); WBC 6.5 10x3/uL (4.8-10.8)
[2017-12-23 03:59] LABS: PLATELET COUNT 109 10x3/uL (130-400)
[2017-12-24] VITALS (25 sets, daily range): BP systolic 84–127; BP diastolic 56–94; Ht 172.7 cm; Wt 47.3 kg
[2017-12-24 03:25] LABS: BASOPHILS 0.2 % (0-2); EOSINOPHILS 0 % (0-7); HEMATOCRIT 33.3 % (36.0-48.0); HEMOGLOBIN 10.4 g/dL (12-16); IMMATURE GRANULOCYTES 0.4 % (0-5); LYMPHOCYTES 23.2 % (15-50); MCH 28.5 pg (26.0-34.0); MCHC 31.2 g/dL (31.0-37.0); MCV 91.2 fL (80.0-100.0); MEAN PLATELET VOLUME 10.1 fL (7.4-10.4); MONOCYTES 5.7 % (2-11); NEUTROPHILS 70.5 % (40-80); RBC 3.65 10x6/uL (4.00-5.40); RDW 19.5 % (11.5-14.5)
[2017-12-24 03:35] LABS: PLATELET COUNT 84 10x3/uL (130-400)
[2017-12-24 03:41] LABS: ALBUMIN 2.4 g/dL (3.4-5.0); ANION GAP 16.2 mmol/L (8-16); BILIRUBIN - TOTAL 1.05 mg/dL (0.2-1.3); CALCIUM 7.6 mg/dL (8.5-10.1); CARBON DIOXIDE 26.5 mmol/L (21.0-32.0); CREATININE - SERUM 4.5 mg/dL (0.6-1.3)
[2017-12-24 03:55] LABS: PHOSPHOROUS 4.8 mg/dL (2.5-4.9); POTASSIUM - SERUM 4.7 mmol/L (3.5-5.1)
[2017-12-25] VITALS (26 sets, daily range): BP systolic 86–130; BP diastolic 52–102
[2017-12-25 04:52] LABS: ALBUMIN 2.2 g/dL (3.4-5.0); ANION GAP 14.5 mmol/L (8-16); BILIRUBIN - TOTAL 0.79 mg/dL (0.2-1.3); CALCIUM 7.2 mg/dL (8.5-10.1); CARBON DIOXIDE 28.1 mmol/L (21.0-32.0); PROTEIN - SERUM 4.9 g/dL (6.4-8.2)
[2017-12-25 05:01] LABS: CREATININE - SERUM 3.2 mg/dL (0.6-1.3); POTASSIUM - SERUM 3.6 mmol/L (3.5-5.1)
[2017-12-26] VITALS (8 sets, daily range): BP systolic 94–127; BP diastolic 67–83
[2017-12-26 04:39] LABS: BASOPHILS 0 % (0-2); EOSINOPHILS 0.2 % (0-7); HEMATOCRIT 31.4 % (36.0-48.0); HEMOGLOBIN 9.9 g/dL (12-16); IMMATURE GRANULOCYTES 0.4 % (0-5); MCH 28.9 pg (26.0-34.0); MCHC 31.5 g/dL (31.0-37.0); MCV 91.5 fL (80.0-100.0); MEAN PLATELET VOLUME 10.7 fL (7.4-10.4); MONOCYTES 4.7 % (2-11); NEUTROPHILS 74.7 % (40-80); PLATELET COUNT 84 10x3/uL (130-400); RBC 3.43 10x6/uL (4.00-5.40); RDW 19.5 % (11.5-14.5); WBC 5.5 10x3/uL (4.8-10.8)
[2017-12-26 05:00] LABS: ANION GAP 16.9 mmol/L (8-16); CARBON DIOXIDE 24.3 mmol/L (21.0-32.0); POTASSIUM - SERUM 3.2 mmol/L (3.5-5.1)
[2017-12-26 05:05] LABS: CREATININE - SERUM 4.4 mg/dL (0.6-1.3)
== END 2017-12-26 10:43 | disposition hospice, inpatient (51) | DRG 291 ==
LOC: D.M2 19:47 → OBSVTIME 19:47 → UNDOADMOB 19:47 → D.M2 19:47 → OBSVTIME 20:15 → D.M2 20:15 → D.ICU 12-20 12:17 → D.M2 12-20 12:17 → D.ICU 12-22 11:51
PROVIDERS: Internal Medicine Nephrology; Internal Medicine Pulmonary Disease
DX: I13.2 Hypertensive heart and chronic kidney disease with heart failure and with stage 5 chronic kidney disease, or end stage renal disease (principal); N18.6 End stage renal disease; N39.0 Urinary tract infection, site not specified; F05 Delirium due to known physiological condition; I50.9 Heart failure, unspecified; Z99.2 Dependence on renal dialysis; I27.20 Pulmonary hypertension, unspecified; F41.9 Anxiety disorder, unspecified; F32.9 Major depressive disorder, single episode, unspecified; J44.9 Chronic obstructive pulmonary disease, unspecified; I48.91 Unspecified atrial fibrillation; D63.1 Anemia in chronic kidney disease; I95.9 Hypotension, unspecified; Z79.01 Long term (current) use of anticoagulants; E87.6 Hypokalemia

== ENCOUNTER 2017-12-26 10:47 | Inpatient (IN) | payer OTHER ==
[~2017-12-26] VITALS: Ht 172.7 cm; Wt 47.3 kg
[2017-12-26 13:43] VITALS: BP 122/73; Ht 172.7 cm; Wt 47.3 kg
[2017-12-26 14:06] VITALS: BP 119/67
[2017-12-26 16:00] VITALS: BP 106/63
[2017-12-26 18:36] VITALS: BP 108/72
[2017-12-26 19:00] VITALS: BP 112/76
[2017-12-26 23:00] VITALS: BP 117/72
[2017-12-27 03:00] VITALS: BP 107/70
[2017-12-27 07:00] VITALS: BP 76/44
[2017-12-27 14:00] VITALS: BP 96/52
== END 2017-12-27 19:01 | DRG 951 ==
LOC: D.ICU 10:47
DX: Z51.5 Encounter for palliative care (principal)